=== PATIENT | female | born 1960 | race Two or more races ===

== ENCOUNTER 2017-12-25 20:43 | Emergency (ER) | payer MEDICAID ==
[~2017-12-25] VITALS: Ht 162.6 cm; Wt 109.3 kg
[~2017-12-25 20:43] MED LIST: ALPR0.5T8 PO; ATOR10TA PO; CLOP75TA15 PO; FURO-150 PO; GABA-532 PO; HYDR-569 PO; INSU100V37 SQ; LOSA50TA37 PO; METF850T2 PO; METO25TA6 PO; OXYB5TAB29 PO; PANT-47 PO; POTA8TAB57 PO; PRAM1TAB4 PO; THYR60TA2 PO
[2017-12-25] MEDS ORDERED: normal saline 1000ML IV soln IVB ONE (21:05)
[2017-12-25 21:51] LABS: ALANINE AMINOTRANSFERASE 52 U/L (12-78); ALBUMIN 3.6 G/DL (3.4-5.0); ALKALINE PHOSPHATASE 148 IU/L (46-116); ANION GAP 12 (8-16); ASPARTATE AMINO TRANSFERASE 24 U/L (10-37); BILIRUBIN,TOTAL 0.3 MG/DL (0.1-1.0); BLOOD UREA NITROGEN 20 MG/DL (7-18); BUN/CREATININE RATIO 23.3 (6.6-38.0); CHLORIDE 106 MMOL/L (99-107); CREATININE 0.86 MG/DL (0.40-0.90); GLUCOSE 219 MG/DL (70-104); MAGNESIUM 2.1 MG/DL (1.5-2.4); POTASSIUM 3.6 MMOL/L (3.5-5.1); SODIUM 140 MMOL/L (135-145); TOTAL PROTEIN 7.2 G/DL (6.4-8.2); eGFR 68 ML/MIN
[2017-12-25 22:09] LABS: BASOPHILS % (AUTO) 0.3 % (0-1); EOSINOPHILS # (AUTO) 0.1 X10'3 (0-0.9); EOSINOPHILS % (AUTO) 1.1 % (0-6); HEMOGLOBIN 13.6 g/dl (12.0-16.0); LYMPHOCYTES # (AUTO) 3.1 X10'3 (1.1-4.8); LYMPHOCYTES % (AUTO) 31.2 % (21-51); MEAN CORPUSCULAR HEMOGLOBIN 30.2 PG (27.0-31.0); MEAN CORPUSCULAR VOLUME 88.9 FL (78-98); MONOCYTES # (AUTO) 0.6 X10'3 (0-0.9); MONOCYTES % (AUTO) 6.3 % (2-12); NEUTROPHILS % (AUTO) 61.1 % (42-75); PLATELET COUNT 268 X10'3 (140-440); RED CELL DISTRIBUTION WIDTH 13.5 % (11.5-14.5); WHITE BLOOD COUNT 9.9 X10'3 (4.5-11.0)
[2017-12-25 22:13] LABS: CLARITY,URINE SLIGHTLY CLOUDY (Clear); COLOR,URINE YELLOW (Yellow); GLUCOSE, URINE >=1000 mg/dl (Neg); KETONES,URINE NEGATIVE (Neg); LEUKOCYTE ESTERASE ,URINE TRACE (Neg); NITRITES, URINE NEGATIVE (Neg); OCCULT BLOOD,URINE NEGATIVE (Neg); PH,URINE 5.5 (4.8-8.0); PROTEIN,URINE NEGATIVE (Neg); UROBILINOGEN,URINE 0.2 E.U/dL (0.2-1.0)
[2017-12-25 22:14] LABS: UA COLLECTION TYPE CLN CATCH MIDSTREAM
[2017-12-25 22:20] LABS: BACTERIA,URINE 1+ /HPF (Neg); MUCUS STRANDS FEW /LPF (Neg); RBC,URINE 0-2 /HPF (0-2); SQUAMOUS EPITHELIAL CELL,UR MODERATE /LPF (FEW); WBC CLUMPS,URINE MODERATE /HPF (NEGATIVE); WBC,URINE 20-30 /HPF (0-4)
[2017-12-25] MEDS ORDERED: nitrofuran/nitrofuran macrocrysal 100 MG capsule PO ONE (22:30)
[2017-12-25] MEDS ORDERED: HYDROcodone/acetaminophen 10/325mg tab PO ONE (22:30)
[2017-12-25] MEDS ORDERED: NITR100C6 PO (22:40)
[2017-12-25 22:50] VITALS: BP 111/64
== END 2017-12-25 22:58 | disposition home or self-care (01) ==
LOC: ER 20:43
DX: S13.4XXA Sprain of ligaments of cervical spine, initial encounter (principal); S09.90XA Unspecified injury of head, initial encounter; N39.0 Urinary tract infection, site not specified; I25.10 Atherosclerotic heart disease of native coronary artery without angina pectoris; I10 Essential (primary) hypertension; E03.9 Hypothyroidism, unspecified; E11.9 Type 2 diabetes mellitus without complications; Z90.710 Acquired absence of both cervix and uterus; Z86.73 Personal history of transient ischemic attack (TIA), and cerebral infarction without residual deficits; Z88.5 Allergy status to narcotic agent; Z88.0 Allergy status to penicillin; Z79.4 Long term (current) use of insulin; Z79.84 Long term (current) use of oral hypoglycemic drugs; Z79.899 Other long term (current) drug therapy; W18.39XA Other fall on same level, initial encounter; Y93.89 Activity, other specified; Y92.89 Other specified places as the place of occurrence of the external cause; Y99.8 Other external cause status
CPT/HCPCS: 36415; 70450; 71045; 72125; 73110; 80053; 81001; 82948; 83735; 84484; 85025; 87088; 93005; 96360; 99285; J7030; 74176

== ENCOUNTER 2018-10-22 14:15 | Emergency (ER) | payer MEDICAID ==
[~2018-10-22] VITALS: Ht 162.6 cm; Wt 106.8 kg
[~2018-10-22 14:15] MED LIST changes: +HYDR-4383 PO; -HYDR-569 PO; -LOSA50TA37 PO; +LOSA50TA64 PO; +METF-437 PO; -METF850T2 PO; +NITR100C6 PO
[2018-10-22] MEDS ORDERED: albuterol 2.5 mg/0.5ml nebule NEB ONE (15:45)
[2018-10-22] MEDS ORDERED: methylPREDNISolone sod succ 125mg/2ml vial IV ONE (15:45)
[2018-10-22] MEDS ORDERED: albuterol 2.5 MG/3 ML nebule NEB ONE (15:50)
[2018-10-22 16:21] LABS: BASOPHILS % (AUTO) 0.5 % (0-1); EOSINOPHILS % (AUTO) 0.3 % (0-6); HEMATOCRIT 45.8 % (35.0-45.0); HEMOGLOBIN 15.2 g/dl (12.0-16.0); LYMPHOCYTES # (AUTO) 2.8 X10'3 (1.1-4.8); LYMPHOCYTES % (AUTO) 32.5 % (21-51); MEAN CORPUSCULAR HEMOGLOBIN 29.7 PG (27.0-31.0); MEAN CORPUSCULAR HGB CONC 33.3 g/dL (33.0-36.5); MEAN CORPUSCULAR VOLUME 89.3 FL (78-98); MEAN PLATELET VOLUME 8.6 FL (7.4-10.4); MONOCYTES # (AUTO) 0.4 X10'3 (0-0.9); MONOCYTES % (AUTO) 5.2 % (2-12); NEUTROPHILS # (AUTO) 5.4 X10'3 (1.8-7.7); NEUTROPHILS % (AUTO) 61.5 % (42-75); PLATELET COUNT 290 X10'3 (140-440); RED BLOOD COUNT 5.12 X10'6 (4.20-5.60); RED CELL DISTRIBUTION WIDTH 14.1 % (11.5-14.5); WHITE BLOOD COUNT 8.6 X10'3 (4.5-11.0)
[2018-10-22] MEDS ORDERED: PRED20TA PO (16:35)
[2018-10-22] MEDS ORDERED: ALBU6.7H INH (16:35)
[2018-10-22] MEDS ORDERED: ipratropium/albuterol 3ml nebule NEB ONE (16:35)
[2018-10-22] MEDS ORDERED: GUAI473S11 PO (16:35)
[2018-10-22] MEDS ORDERED: LEVO500T2 PO (16:35)
[2018-10-22 17:39] VITALS: BP 140/63
[2018-10-22 17:40] LABS: ALANINE AMINOTRANSFERASE 70 U/L (12-78); ALBUMIN 3.5 G/DL (3.4-5.0); ALKALINE PHOSPHATASE 115 IU/L (46-116); ANION GAP 14 (8-16); ASPARTATE AMINO TRANSFERASE 32 U/L (10-37); BILIRUBIN,TOTAL 0.4 MG/DL (0.1-1.0); BLOOD UREA NITROGEN 12 MG/DL (7-18); BUN/CREATININE RATIO 13.3 (6.6-38.0); CHLORIDE 106 MMOL/L (99-107); GLUCOSE 98 MG/DL (70-104); POTASSIUM 3.4 MMOL/L (3.5-5.1); SODIUM 142 MMOL/L (135-145); TOTAL CARBON DIOXIDE 22.3 MMOL/L (24-32); TOTAL PROTEIN 7.1 G/DL (6.4-8.2); eGFR 64 ML/MIN
== END 2018-10-22 17:45 | disposition home or self-care (01) ==
LOC: ER 14:16
DX: J20.9 Acute bronchitis, unspecified (principal); E86.0 Dehydration; I10 Essential (primary) hypertension; I25.10 Atherosclerotic heart disease of native coronary artery without angina pectoris; E11.9 Type 2 diabetes mellitus without complications; E03.9 Hypothyroidism, unspecified; Z86.73 Personal history of transient ischemic attack (TIA), and cerebral infarction without residual deficits; Z90.710 Acquired absence of both cervix and uterus; Z88.6 Allergy status to analgesic agent; Z88.0 Allergy status to penicillin; Z79.4 Long term (current) use of insulin
CPT/HCPCS: 36415; 71046; 80053; 83605; 85025; 87040; 93005; 94640; 94760; 96374; 99284; J2930; J7611

== ENCOUNTER 2019-02-07 08:28 | Emergency (ER) | payer MEDICAID ==
[~2019-02-07] VITALS: Ht 162.6 cm; Wt 118.0 kg
[~2019-02-07 08:28] MED LIST changes: +ALBU6.7H INH
--- NOTE | 2019-02-07 08:51 | NUR ---
SPOKE TO POISON CONTROL. POSION CONTROLLED RECOMMENDED THAT IF PT. IS SYMPTOMATIC TO HAVE PHYSICIAN EVALUATE HER.
[2019-02-07 08:56] LABS: BASOPHILS # (AUTO) 0.1 X10'3 (0-0.2); BASOPHILS % (AUTO) 0.7 % (0-1); EOSINOPHILS # (AUTO) 0.1 X10'3 (0-0.9); EOSINOPHILS % (AUTO) 1.8 % (0-6); HEMATOCRIT 38.5 % (35.0-45.0); LYMPHOCYTES # (AUTO) 2.7 X10'3 (1.1-4.8); LYMPHOCYTES % (AUTO) 34.4 % (21-51); MEAN CORPUSCULAR HEMOGLOBIN 28.8 PG (27.0-31.0); MEAN CORPUSCULAR HGB CONC 33.7 g/dL (33.0-36.5); MEAN CORPUSCULAR VOLUME 85.4 FL (78-98); MEAN PLATELET VOLUME 8.6 FL (7.4-10.4); MONOCYTES # (AUTO) 0.4 X10'3 (0-0.9); MONOCYTES % (AUTO) 5.5 % (2-12); NEUTROPHILS # (AUTO) 4.5 X10'3 (1.8-7.7); NEUTROPHILS % (AUTO) 57.6 % (42-75); PLATELET COUNT 328 X10'3 (140-440); RED BLOOD COUNT 4.51 X10'6 (4.20-5.60); RED CELL DISTRIBUTION WIDTH 12.9 % (11.5-14.5); WHITE BLOOD COUNT 7.8 X10'3 (4.5-11.0)
[2019-02-07 09:17] LABS: ALANINE AMINOTRANSFERASE 49 U/L (12-78); ALBUMIN 3.4 G/DL (3.4-5.0); ALBUMIN/GLOBULIN RATIO 0.9 (1.1-1.5); ALKALINE PHOSPHATASE 152 IU/L (46-116); ANION GAP 9 (8-16); BILIRUBIN,TOTAL 0.4 MG/DL (0.1-1.0); BLOOD UREA NITROGEN 10 MG/DL (7-18); BUN/CREATININE RATIO 11.5 (6.6-38.0); CHLORIDE 105 MMOL/L (99-107); CREATININE 0.87 MG/DL (0.40-0.90); GLUCOSE 178 MG/DL (70-104); POTASSIUM 3.6 MMOL/L (3.5-5.1); SODIUM 138 MMOL/L (135-145); TOTAL CARBON DIOXIDE 24.3 MMOL/L (24-32); TOTAL PROTEIN 7.1 G/DL (6.4-8.2); eGFR 67 ML/MIN
[2019-02-07 09:19] LABS: ASPARTATE AMINO TRANSFERASE 28 U/L (10-37)
[2019-02-07 09:48] VITALS: BP 125/70
== END 2019-02-07 09:51 | disposition home or self-care (01) ==
LOC: ER 08:30
DX: T60.4X1A Toxic effect of rodenticides, accidental (unintentional), initial encounter (principal); R11.0 Nausea; I25.10 Atherosclerotic heart disease of native coronary artery without angina pectoris; I10 Essential (primary) hypertension; E11.9 Type 2 diabetes mellitus without complications; E03.9 Hypothyroidism, unspecified; Z86.73 Personal history of transient ischemic attack (TIA), and cerebral infarction without residual deficits; Z90.710 Acquired absence of both cervix and uterus; Z98.890 Other specified postprocedural states; Z88.5 Allergy status to narcotic agent; Z88.0 Allergy status to penicillin; Z79.4 Long term (current) use of insulin; Z79.899 Other long term (current) drug therapy; Y92.89 Other specified places as the place of occurrence of the external cause
CPT/HCPCS: 36415; 80053; 85025; 85610; 99283

== ENCOUNTER 2020-03-11 08:56 | Day surgery (SDC) | payer MEDICAID ==
[2020-03-09 09:15] LABS: BASOPHILS % (AUTO) 0.6 % (0-1); EOSINOPHILS # (AUTO) 0.1 X10'3 (0-0.9); EOSINOPHILS % (AUTO) 1.9 % (0-6); HEMATOCRIT 38.6 % (35.0-45.0); HEMOGLOBIN 12.7 g/dl (12.0-16.0); LYMPHOCYTES # (AUTO) 2.9 X10'3 (1.1-4.8); LYMPHOCYTES % (AUTO) 40.1 % (21-51); MEAN CORPUSCULAR HEMOGLOBIN 28.9 PG (27.0-31.0); MEAN CORPUSCULAR VOLUME 87.3 FL (78-98); MEAN PLATELET VOLUME 8.7 FL (7.4-10.4); MONOCYTES # (AUTO) 0.4 X10'3 (0-0.9); MONOCYTES % (AUTO) 5.7 % (2-12); NEUTROPHILS # (AUTO) 3.7 X10'3 (1.8-7.7); NEUTROPHILS % (AUTO) 51.7 % (42-75); PLATELET COUNT 264 X10'3 (140-440); RED BLOOD COUNT 4.42 X10'6 (4.20-5.60); RED CELL DISTRIBUTION WIDTH 13.8 % (11.5-14.5); WHITE BLOOD COUNT 7.1 X10'3 (4.5-11.0)
[2020-03-09 09:26] LABS: PARTIAL THROMBOPLASTIN TIME 27 SECONDS (22-32)
[2020-03-09 09:52] LABS: ALANINE AMINOTRANSFERASE 31 U/L (12-78); ALBUMIN 3.5 G/DL (3.4-5.0); ALBUMIN/GLOBULIN RATIO 0.9 (1.1-1.5); ALKALINE PHOSPHATASE 123 IU/L (46-116); ANION GAP 11 (8-16); ASPARTATE AMINO TRANSFERASE 19 U/L (10-37); BILIRUBIN,TOTAL 0.4 MG/DL (0.1-1.0); BLOOD UREA NITROGEN 10 MG/DL (7-18); BUN/CREATININE RATIO 11.4 (6.6-38.0); CALCIUM 8.5 MG/DL (8.5-10.1); CHLORIDE 110 MMOL/L (99-107); CREATININE 0.88 MG/DL (0.40-0.90); GLUCOSE 96 MG/DL (70-104); POTASSIUM 3.7 MMOL/L (3.5-5.1); SODIUM 143 MMOL/L (135-145); TOTAL CARBON DIOXIDE 22.5 MMOL/L (24-32); TOTAL PROTEIN 7.3 G/DL (6.4-8.2); eGFR 66 ML/MIN
[2020-03-11] VITALS (18 sets, daily range): BP systolic 130–160; BP diastolic 74–89
[~2020-03-11] VITALS: Ht 157.5 cm; Wt 107.9 kg
[~2020-03-11 08:56] MED LIST changes: -ALBU6.7H INH; +ALBU6.7H9 INH
[2020-03-11] MEDS ORDERED: normal saline 1,000 ML IV SCH (09:15)
[2020-03-11] MEDS ORDERED: diphenhydrAMINE 25mg capsule PO PRN (09:15)
[2020-03-11] MEDS ORDERED: insulin Lispro (HumaLOG) vial - multi-dose SQ SCH (09:15)
[2020-03-11] MEDS ORDERED: LORazepam 0.5 MG tablet PO PRN (09:15)
[2020-03-11] MEDS ORDERED: dextrose 50%-water 50ml dispensing syringe IV PRN ×2 (09:15)
[2020-03-11] MEDS ORDERED: glucagon, human recombinant 1mg kit SUBCUT PRN (09:15)
[2020-03-11] MEDS ORDERED: nitroGLYCERIN 0.4mg SUBLingual tab SL PRN ×3 (09:15→13:55)
[2020-03-11] MEDS ORDERED: dextrose ORAL solution 15 GM/59 ML bottle PO PRN ×2 (09:15)
--- NOTE | 2020-03-11 09:30 | NUR ---
Pt arrives to Short Stay with bhavna Wellerator.
[2020-03-11] MEDS ORDERED: ATOR10TA87 PO (09:33)
[2020-03-11] MEDS ORDERED: NITR0.4T48 SL (09:33)
[2020-03-11] MEDS ORDERED: MONT10TA26 PO (09:33)
[2020-03-11] MEDS ORDERED: LIRA0.6P SQ (09:33)
[2020-03-11] MEDS ORDERED: heparin 1,000 UNITS/NS 500ml 500 ML ONE (10:29)
[2020-03-11] MEDS ORDERED: midazolam 2 mg/2 ml injection ONE (10:29)
[2020-03-11] MEDS ORDERED: LIDOcaine 1% (10mg/ml)w/preservative injection 20ml MDV ONE (10:29)
[2020-03-11] MEDS ORDERED: iohexol 350 MG/ML 50ML vial IV ONE (10:29)
[2020-03-11] MEDS ORDERED: iohexol 350MG/ML 100ml bottle IV ONE (10:29)
[2020-03-11] MEDS ORDERED: fentaNYL/PF 50MCG/1 ML 2ML syringe ONE (10:29)
[2020-03-11] MEDS ORDERED: normal saline 1000ml 1,000 ML IV SCH (12:05)
[2020-03-11] MEDS ORDERED: HYDROcodone/acetaminophen 5mg/325mg tablet PO PRN (12:05)
[2020-03-11] MEDS ORDERED: HYDROcodone/acetaminophen 10/325mg tab PO PRN (12:05)
[2020-03-11] MEDS ORDERED: OXAZEpam 15mg capsule PO PRN (12:05)
[2020-03-11] MEDS ORDERED: proCHLORperazine 10 MG/2 ml inj IV PRN (12:05)
[2020-03-11] MEDS ORDERED: ondansetron/PF 4mg/2ml inj IV PRN (12:05)
[2020-03-11] MEDS ORDERED: losartan 50mg tablet PO SCH (13:58)
[2020-03-11] MEDS ORDERED: LIRAGLUTIDE 0.6 MG/0.1 ML PEN.INJCTR SQ SCH (14:05)
[2020-03-11] MEDS ORDERED: MESSAGE TO NURSING PO NR (14:17)
[2020-03-11] MEDS ORDERED: insulin glargine (Lantus) pen - multi-dose SQ SCH (21:00)
[2020-03-12] MEDS ORDERED: montelukast 10mg tablet PO SCH (08:00)
[2020-03-12] MEDS ORDERED: clopidogrel 75mg tablet PO SCH (08:00)
[2020-03-12] MEDS ORDERED: atorvastatin 10mg tablet PO SCH (08:00)
[2020-03-13] MEDS ORDERED: metFORMIN 850mg tablet PO SCH (13:00)
== END 2020-03-11 19:00 | disposition home or self-care (01) ==
LOC: SSTAY O 08:56
PROVIDERS: ATTEND Internal Medicine Cardiovascular Disease
DX: R06.09 Other forms of dyspnea (principal); R07.89 Other chest pain; I25.10 Atherosclerotic heart disease of native coronary artery without angina pectoris; I10 Essential (primary) hypertension; E78.5 Hyperlipidemia, unspecified; E11.9 Type 2 diabetes mellitus without complications; G47.33 Obstructive sleep apnea (adult) (pediatric); Z86.73 Personal history of transient ischemic attack (TIA), and cerebral infarction without residual deficits; Z90.710 Acquired absence of both cervix and uterus; Z88.0 Allergy status to penicillin; Z88.5 Allergy status to narcotic agent; Z87.891 Personal history of nicotine dependence; Z79.899 Other long term (current) drug therapy
CPT/HCPCS: 36415; 71046; 80053; 82948; 83880; 85025; 85610; 85730; 93005; 93458; 99152; 99153; C1760; C1769; J1644; J2001; J2250; J3010; J7030; Q0163; Q9967; A6258; J1815

== ENCOUNTER 2020-03-31 06:47 | Day surgery (SDC) | payer MEDICAID ==
[2020-03-23 10:19] LABS: BASOPHILS % (AUTO) 0.4 % (0-1); EOSINOPHILS # (AUTO) 0.2 X10'3 (0-0.9); EOSINOPHILS % (AUTO) 1.7 % (0-6); LYMPHOCYTES # (AUTO) 2.7 X10'3 (1.1-4.8); LYMPHOCYTES % (AUTO) 28.8 % (21-51); MEAN CORPUSCULAR HGB CONC 33.7 g/dL (33.0-36.5); MEAN CORPUSCULAR VOLUME 86.2 FL (78-98); MEAN PLATELET VOLUME 8.6 FL (7.4-10.4); MONOCYTES # (AUTO) 0.5 X10'3 (0-0.9); NEUTROPHILS % (AUTO) 64.1 % (42-75); PRE OP HEMATOCRIT 38.7 % (35.0-45.0); PRE OP PLATELET COUNT 312 X10'3 (140-440); RED BLOOD COUNT 4.49 X10'6 (4.20-5.60); RED CELL DISTRIBUTION WIDTH 13.8 % (11.5-14.5)
[2020-03-23 10:32] LABS: ALBUMIN 3.6 G/DL (3.4-5.0); ALBUMIN/GLOBULIN RATIO 0.9 (1.1-1.5); ALKALINE PHOSPHATASE 120 IU/L (46-116); BLOOD UREA NITROGEN 11 MG/DL (7-18); BUN/CREATININE RATIO 10.4 (6.6-38.0); CALCIUM 8.9 MG/DL (8.5-10.1); CHLORIDE 106 MMOL/L (99-107); CREATININE 1.06 MG/DL (0.40-0.90); PRE OP ALT 29 U/L (30-65); PRE OP ANION GAP 10 (8-16); PRE OP AST 23 U/L (10-37); PRE OP BILIRUB, TOTAL 0.5 MG/DL (0.0-1.0); PRE OP GLUCOSE 115 MG/DL (70-104); PRE OP SODIUM 139 MMOL/L (135-145); TOTAL CARBON DIOXIDE 23.3 MMOL/L (24-32); TOTAL PROTEIN 7.5 G/DL (6.4-8.2); eGFR 53 ML/MIN
[2020-03-23 10:38] LABS: PRE OP POTASSIUM 3.3 MMOL/L (3.4-5.1)
[~2020-03-31] VITALS: Ht 162.6 cm; Wt 106.8 kg
[2020-03-31] VITALS (17 sets, daily range): BP systolic 117–144; BP diastolic 54–79
[~2020-03-31 06:47] MED LIST changes: -ALBU6.7H9 INH; -ALPR0.5T8 PO; -ATOR10TA PO; +ATOR10TA87 PO; -GABA-532 PO; -HYDR-4383 PO; +LIRA0.6P SQ; +LORA-269 PO; -METO25TA6 PO; +MONT10TA26 PO; +NITR0.4T48 SL; -NITR100C6 PO; -OXYB5TAB29 PO; -PANT-47 PO; -POTA8TAB57 PO; -PRAM1TAB4 PO; +clindamycin-Cleocin 900mg/D5W 50 ML IV ONE; +famotidine 20mg tablet PO ONE; +ringers solution, lacted 1,000 ML IV SCH
[2020-03-31] MEDS ORDERED: ringers solution, lacted 1,000 ML IV SCH (08:22)
[2020-03-31] MEDS ORDERED: proCHLORperazine 10 MG/2 ml inj IV PRN (08:25)
[2020-03-31] MEDS ORDERED: morphine 2 MG/ML inj. syringe IV PRN (08:25)
[2020-03-31] MEDS ORDERED: meperidine/PF 25mg/ml syringe IV PRN ×3 (08:25)
[2020-03-31] MEDS ORDERED: ondansetron/PF 4mg/2ml inj IV PRN (08:25)
[2020-03-31] MEDS ORDERED: morphine 4 MG/ML inj SYRINge IV PRN (08:25)
[2020-03-31] MEDS ORDERED: BUPIVACAINE liposomal/PF 13.3 MG/ML vial IM ONE (09:40)
[2020-03-31] MEDS ORDERED: BUPIVAcaine/PF 2.5 mg/ml (0.25%) 30ml vial ONE (09:40)
[2020-03-31] MEDS ORDERED: BUPIVAcaine/PF 2.5mg/ml (0.25%) 10ml vial ONE (09:40)
[2020-03-31] MEDS ORDERED: LIDOcaine 1% 30ml preserv. free vial ONE (09:40)
[2020-03-31] MEDS ORDERED: glycopyrrolate 0.2mg/ml inj ONE (10:14)
[2020-03-31] MEDS ORDERED: desflurane 240ml liquid inh. IH ONE (10:14)
[2020-03-31] MEDS ORDERED: dexamethasone sod phosphate 10mg/ml inj ONE (10:14)
[2020-03-31] MEDS ORDERED: neostigmine methylsulfate 1 MG/ML 10ml vial ONE (10:14)
[2020-03-31] MEDS ORDERED: midazolam 2 mg/2 ml injection ONE (10:22)
[2020-03-31] MEDS ORDERED: fentaNYL /PF 50mcg/ml 5ml ampule ONE (10:23)
[2020-03-31] MEDS ORDERED: propofol inj 20 ML IV ONE (10:25)
[2020-03-31] MEDS ORDERED: LIDOcaine 2% (20mg/ml) 5ml vial ONE (10:25)
[2020-03-31] MEDS ORDERED: rocuronium 10mg/ml inj IV ONE (10:26)
[2020-03-31] MEDS ORDERED: ondansetron/PF 4mg/2ml inj ONE (11:18)
[2020-03-31] MEDS ORDERED: acetaminophen 1,000mg/100ml IV 100 ML IV ONE (12:11)
--- NOTE | 2020-03-31 12:21 | NUR ---
Received from OR via [facility], accompanied by Anesthesiologist DR KUHN and report given by Anesthesiologist. VSS. AWAKENS TO COMMANDS. NO C/O PAIN/ ABD SOFT/NONTENDER. IV PATENT #20 LEFT HAND. SCD'S BILAT. Addendum: 03/31/20 at 1239 by Danika Bailey RN Amended: Links added.
[2020-03-31] MEDS ORDERED: HYDROcodone/acetaminophen 10/325mg tab PO PRN (13:05)
--- NOTE | 2020-03-31 15:11 | NUR ---
VSS. UP TO BR-VOID 200MLS-STATES FEELS EMPTIED BLADDER WHEN ASKED. ABD BANDAIDS CDI. ABD SOFT/NONDISTENDED. TOLERATING PO FLUIDS AND SNACK WELL. STATES ADEQUATE PAIN RELIEF AND READINESS TO DC HOME WHEN ASKED. IV DC'D WITH CANNULA INTACT AND DSG APPLIED. DC INSTRUCTIONS REVIEWED WITH PT AND DTR WHO VEBALIZED UNDERSTANDING. DC VIA W/C TO PVT AUTO WITH ALL BELONGINGS AND DTR PRESENT. Addendum: 03/31/20 at 1533 by Danika Bailey RN Amended: Links added.
== END 2020-03-31 15:11 | disposition home or self-care (01) ==
LOC: PAS 06:47
PROVIDERS: ATTEND Surgery
DX: K43.0 Incisional hernia with obstruction, without gangrene (principal); K42.9 Umbilical hernia without obstruction or gangrene; E11.9 Type 2 diabetes mellitus without complications; E78.5 Hyperlipidemia, unspecified; F41.9 Anxiety disorder, unspecified; E03.9 Hypothyroidism, unspecified; I10 Essential (primary) hypertension; E66.01 Morbid (severe) obesity due to excess calories; Z68.41 Body mass index [BMI] 40.0-44.9, adult; Z90.49 Acquired absence of other specified parts of digestive tract; Z88.5 Allergy status to narcotic agent; Z88.0 Allergy status to penicillin; Z79.01 Long term (current) use of anticoagulants; Z79.4 Long term (current) use of insulin; Z11.59 Encounter for screening for other viral diseases; Z98.890 Other specified postprocedural states; Z86.73 Personal history of transient ischemic attack (TIA), and cerebral infarction without residual deficits
CPT/HCPCS: 36415; 49652; 49655; 64488; 80053; 82948; 85025; 85610; 85730; A6258; C1781; C9290; J0131; J1100; J2001; J2250; J2405; J2704; J2710; J3010; J3490; J7120; S2900; U0003; A4215; A4618

== ENCOUNTER 2020-05-27 16:47 | Emergency (ER) | payer MEDICAID ==
[~2020-05-27] VITALS: Ht 162.6 cm; Wt 102.2 kg
[~2020-05-27 16:47] MED LIST changes: -clindamycin-Cleocin 900mg/D5W 50 ML IV ONE; -famotidine 20mg tablet PO ONE; -ringers solution, lacted 1,000 ML IV SCH
[2020-05-27] MEDS ORDERED: vancomycin/NS 1 GM ADD-VANTAGE 250 ML IV ONE (16:55)
[2020-05-27] MEDS ORDERED: levoFLOXACIN-Levaquin 750MG/D5 150 ML IV ONE (16:55)
[2020-05-27] MEDS ORDERED: iohexol 300mg/ml 100ml inj. ONE (17:20)
[2020-05-27 18:17] LABS: BASOPHILS % (AUTO) 0.3 % (0-1); EOSINOPHILS # (AUTO) 0.1 X10'3 (0-0.9); EOSINOPHILS % (AUTO) 1.4 % (0-6); HEMATOCRIT 37.2 % (35.0-45.0); HEMOGLOBIN 12.6 g/dl (12.0-16.0); LYMPHOCYTES # (AUTO) 2.6 X10'3 (1.1-4.8); LYMPHOCYTES % (AUTO) 27.4 % (21-51); MEAN CORPUSCULAR HEMOGLOBIN 29.9 PG (27.0-31.0); MEAN CORPUSCULAR HGB CONC 33.8 g/dL (33.0-36.5); MEAN CORPUSCULAR VOLUME 88.5 FL (78-98); MONOCYTES # (AUTO) 0.4 X10'3 (0-0.9); MONOCYTES % (AUTO) 4.7 % (2-12); NEUTROPHILS # (AUTO) 6.2 X10'3 (1.8-7.7); NEUTROPHILS % (AUTO) 66.2 % (42-75); PLATELET COUNT 301 X10'3 (140-440); RED BLOOD COUNT 4.21 X10'6 (4.20-5.60); RED CELL DISTRIBUTION WIDTH 15.6 % (11.5-14.5); WHITE BLOOD COUNT 9.4 X10'3 (4.5-11.0)
[2020-05-27 18:37] LABS: ALANINE AMINOTRANSFERASE 31 U/L (12-78); ALBUMIN 3.4 G/DL (3.4-5.0); ALBUMIN/GLOBULIN RATIO 0.9 (1.1-1.5); ALKALINE PHOSPHATASE 108 IU/L (46-116); ANION GAP 10 (8-16); ASPARTATE AMINO TRANSFERASE 18 U/L (10-37); BILIRUBIN,TOTAL 0.3 MG/DL (0.1-1.0); BLOOD UREA NITROGEN 7 MG/DL (7-18); BUN/CREATININE RATIO 8.8 (6.6-38.0); CALCIUM 8.8 MG/DL (8.5-10.1); CHLORIDE 106 MMOL/L (99-107); GLUCOSE 108 MG/DL (70-104); MAGNESIUM 1.8 MG/DL (1.5-2.4); POTASSIUM 3.3 MMOL/L (3.5-5.1); SODIUM 139 MMOL/L (135-145); TOTAL CARBON DIOXIDE 22.8 MMOL/L (24-32); eGFR 73 ML/MIN
[2020-05-27] MEDS ORDERED: SULF1TAB49 PO ×2 (18:42→18:49)
[2020-05-27 21:11] VITALS: BP 128/82
== END 2020-05-27 21:00 | disposition home or self-care (01) ==
LOC: ER 16:48
DX: L03.311 Cellulitis of abdominal wall (principal); R10.84 Generalized abdominal pain; I25.10 Atherosclerotic heart disease of native coronary artery without angina pectoris; I10 Essential (primary) hypertension; E11.9 Type 2 diabetes mellitus without complications; E03.9 Hypothyroidism, unspecified; Z86.73 Personal history of transient ischemic attack (TIA), and cerebral infarction without residual deficits; Z90.710 Acquired absence of both cervix and uterus; Z88.0 Allergy status to penicillin; Z79.4 Long term (current) use of insulin; Z79.2 Long term (current) use of antibiotics; Z79.899 Other long term (current) drug therapy
CPT/HCPCS: 36415; 74177; 80053; 83605; 83735; 84145; 85025; 87040; 93005; 96365; 96367; 99285; J1956; J3370; Q9967

== ENCOUNTER 2021-03-05 18:09 | Emergency (ER) | payer MEDICAID ==
[~2021-03-05] VITALS: Ht 162.6 cm; Wt 98.6 kg
[~2021-03-05 18:09] MED LIST changes: -MONT10TA26 PO; +MONT10TA32 PO; +SULF1TAB49 PO
[2021-03-05 18:51] LABS: BASOPHILS % (AUTO) 0.4 % (0-1); EOSINOPHILS # (AUTO) 0.1 X10'3 (0-0.9); EOSINOPHILS % (AUTO) 1.3 % (0-6); HEMATOCRIT 37.6 % (35.0-45.0); HEMOGLOBIN 12.5 g/dl (12.0-16.0); LYMPHOCYTES # (AUTO) 2.6 X10'3 (1.1-4.8); LYMPHOCYTES % (AUTO) 37.9 % (21-51); MEAN CORPUSCULAR HEMOGLOBIN 29.2 PG (27.0-31.0); MEAN CORPUSCULAR HGB CONC 33.3 g/dL (33.0-36.5); MEAN CORPUSCULAR VOLUME 87.7 FL (78-98); MEAN PLATELET VOLUME 8.3 FL (7.4-10.4); MONOCYTES # (AUTO) 0.4 X10'3 (0-0.9); MONOCYTES % (AUTO) 6.3 % (2-12); NEUTROPHILS # (AUTO) 3.7 X10'3 (1.8-7.7); NEUTROPHILS % (AUTO) 54.1 % (42-75); PLATELET COUNT 297 X10'3 (140-440); RED BLOOD COUNT 4.29 X10'6 (4.20-5.60); RED CELL DISTRIBUTION WIDTH 14.8 % (11.5-14.5); WHITE BLOOD COUNT 6.8 X10'3 (4.5-11.0)
[2021-03-05 19:04] LABS: ALANINE AMINOTRANSFERASE 42 U/L (12-78); ALBUMIN 3.3 G/DL (3.4-5.0); ALBUMIN/GLOBULIN RATIO 0.9 (1.1-1.5); ALKALINE PHOSPHATASE 120 IU/L (46-116); ANION GAP 13 (8-16); ASPARTATE AMINO TRANSFERASE 20 U/L (10-37); BILIRUBIN,TOTAL 0.3 MG/DL (0.1-1.0); BLOOD UREA NITROGEN 8 MG/DL (7-18); BUN/CREATININE RATIO 8.9 (6.6-38.0); CALCIUM 8.5 MG/DL (8.5-10.1); CHLORIDE 109 MMOL/L (99-107); GLUCOSE 143 MG/DL (70-104); POTASSIUM 3.4 MMOL/L (3.5-5.1); SODIUM 142 MMOL/L (135-145); TOTAL CARBON DIOXIDE 20.2 MMOL/L (24-32); TOTAL PROTEIN 6.9 G/DL (6.4-8.2); eGFR 64 ML/MIN
[2021-03-05] MEDS ORDERED: LIDOcaine Viscous 15ml cup MM ONE (21:20)
[2021-03-05] MEDS ORDERED: mag hydrox/Alum hydrox/simeth 30ml oral suspension PO ONE (21:20)
[2021-03-05] MEDS ORDERED: pantoprazole 40mg Tablet.DR PO ONE (21:20)
[2021-03-05] MEDS ORDERED: potassium Cl 20 mEq SR tablet PO ONE (23:30)
[2021-03-05] MEDS ORDERED: potassium Cl 10 mEq/100mL bag IV ONE (23:30)
[2021-03-05] MEDS ORDERED: magnesium oxide 400mg tablet PO ONE (23:30)
[2021-03-05] MEDS ORDERED: magnesium 2GM in 50ml NS 50 ML IV ONE (23:30)
[2021-03-05 23:38] LABS: MAGNESIUM 1.9 MG/DL (1.5-2.4)
[2021-03-06 02:43] VITALS: BP 128/72
== END 2021-03-06 02:44 | disposition home or self-care (01) ==
LOC: ER 18:09
DX: E87.6 Hypokalemia (principal); Z20.822 Contact with and (suspected) exposure to COVID-19; R07.89 Other chest pain; R42 Dizziness and giddiness; I25.10 Atherosclerotic heart disease of native coronary artery without angina pectoris; I10 Essential (primary) hypertension; E11.9 Type 2 diabetes mellitus without complications; E03.9 Hypothyroidism, unspecified; Z90.710 Acquired absence of both cervix and uterus; Z98.890 Other specified postprocedural states; Z86.73 Personal history of transient ischemic attack (TIA), and cerebral infarction without residual deficits; Z88.0 Allergy status to penicillin; Z88.8 Allergy status to other drugs, medicaments and biological substances; Z79.899 Other long term (current) drug therapy
CPT/HCPCS: 36415; 71045; 80053; 83735; 83880; 84145; 84484; 85025; 85379; 87635; 93005; 99285; C9803; U0003

== ENCOUNTER 2021-08-19 12:23 | Emergency (ER) | payer MEDICAID ==
[~2021-08-19] VITALS: Ht 162.6 cm; Wt 90.9 kg
[~2021-08-19 12:23] MED LIST changes: +MONT-40 PO; -MONT10TA32 PO
[2021-08-19 14:04] LABS: BASOPHILS % (AUTO) 0.4 % (0-1); EOSINOPHILS # (AUTO) 0.2 X10'3 (0-0.9); EOSINOPHILS % (AUTO) 1.9 % (0-6); HEMATOCRIT 38.7 % (35.0-45.0); HEMOGLOBIN 12.9 g/dl (12.0-16.0); LYMPHOCYTES # (AUTO) 2.7 X10'3 (1.1-4.8); LYMPHOCYTES % (AUTO) 30.9 % (21-51); MEAN CORPUSCULAR HEMOGLOBIN 28.8 PG (27.0-31.0); MEAN CORPUSCULAR HGB CONC 33.5 g/dL (33.0-36.5); MEAN CORPUSCULAR VOLUME 86.1 FL (78-98); MEAN PLATELET VOLUME 8.5 FL (7.4-10.4); MONOCYTES # (AUTO) 0.4 X10'3 (0-0.9); NEUTROPHILS # (AUTO) 5.5 X10'3 (1.8-7.7); NEUTROPHILS % (AUTO) 61.8 % (42-75); PLATELET COUNT 341 X10'3 (140-440); RED CELL DISTRIBUTION WIDTH 13.4 % (11.5-14.5); WHITE BLOOD COUNT 8.8 X10'3 (4.5-11.0)
[2021-08-19 14:17] LABS: PARTIAL THROMBOPLASTIN TIME 25 SECONDS (22-32)
[2021-08-19 14:19] LABS: ALANINE AMINOTRANSFERASE 25 U/L (12-78); ALBUMIN 3.7 G/DL (3.4-5.0); ALBUMIN/GLOBULIN RATIO 0.9 (1.1-1.5); ALKALINE PHOSPHATASE 140 IU/L (46-116); ANION GAP 8 (8-16); ASPARTATE AMINO TRANSFERASE 18 U/L (10-37); BILIRUBIN,TOTAL 0.3 MG/DL (0.1-1.0); BLOOD UREA NITROGEN 11 MG/DL (7-18); BUN/CREATININE RATIO 12.8 (6.6-38.0); CALCIUM 9.4 MG/DL (8.5-10.1); CHLORIDE 105 MMOL/L (99-107); CREATININE 0.86 MG/DL (0.40-0.90); GLUCOSE 103 MG/DL (70-104); POTASSIUM 3.8 MMOL/L (3.5-5.1); SODIUM 139 MMOL/L (135-145); TOTAL CARBON DIOXIDE 25.7 MMOL/L (24-32); TOTAL PROTEIN 7.6 G/DL (6.4-8.2); eGFR 67 ML/MIN
[2021-08-19 18:38] LABS: CLARITY,URINE CLEAR (Clear); COLOR,URINE YELLOW (Yellow); GLUCOSE, URINE NEGATIVE (Neg); KETONES,URINE NEGATIVE (Neg); LEUKOCYTE ESTERASE ,URINE NEGATIVE (Neg); NITRITES, URINE NEGATIVE (Neg); OCCULT BLOOD,URINE NEGATIVE (Neg); PH,URINE 6.5 (4.8-8.0); PROTEIN,URINE NEGATIVE (Neg); UROBILINOGEN,URINE 0.2 E.U/dL (0.2-1.0)
[2021-08-19 18:55] LABS: UA COLLECTION TYPE CLN CATCH MIDSTREAM
[2021-08-19] MEDS ORDERED: acetaminophen 325mg tablet PO ONE (19:10)
[2021-08-19] MEDS ORDERED: ketorolac trometh. 30mg/ml inj. IM ONE (19:10)
[2021-08-19] MEDS ORDERED: proCHLORperazine 10 MG/2 ml inj IM ONE ×2 (19:10→19:35)
[2021-08-19 20:06] VITALS: BP 152/83
== END 2021-08-19 20:10 | disposition home or self-care (01) ==
LOC: ER 12:24
DX: R51.9 Headache, unspecified (principal); R53.1 Weakness; R42 Dizziness and giddiness; I25.10 Atherosclerotic heart disease of native coronary artery without angina pectoris; I10 Essential (primary) hypertension; E11.9 Type 2 diabetes mellitus without complications; E03.9 Hypothyroidism, unspecified; Z86.73 Personal history of transient ischemic attack (TIA), and cerebral infarction without residual deficits; Z90.710 Acquired absence of both cervix and uterus; Z98.890 Other specified postprocedural states; Z88.0 Allergy status to penicillin; Z79.2 Long term (current) use of antibiotics; Z79.899 Other long term (current) drug therapy
CPT/HCPCS: 36415; 70450; 71045; 80053; 81003; 85025; 85610; 85730; 86885; 86900; 86901; 93005; 96372; 99285; J0780; J1885

== ENCOUNTER 2022-04-22 09:21 | Inpatient (IN) | payer MEDICAID ==
[~2022-04-22] VITALS: Ht 154.9 cm; Wt 93.2 kg
[2022-04-22] MEDS ORDERED: normal saline 1000ML IV soln IVB ONE ×2 (11:30→14:00)
[2022-04-22 12:19] LABS: BASOPHILS % (AUTO) 0.1 % (0-1); EOSINOPHILS % (AUTO) 0 % (0-6); HEMOGLOBIN 13.7 g/dl (12.0-16.0); LYMPHOCYTES # (AUTO) 0.9 X10'3 (1.1-4.8); LYMPHOCYTES % (AUTO) 8.7 % (21-51); MEAN CORPUSCULAR HEMOGLOBIN 27.1 PG (27.0-31.0); MEAN CORPUSCULAR HGB CONC 33.3 g/dL (33.0-36.5); MEAN CORPUSCULAR VOLUME 81.3 FL (78-98); MEAN PLATELET VOLUME 8.7 FL (7.4-10.4); MONOCYTES # (AUTO) 0.3 X10'3 (0-0.9); MONOCYTES % (AUTO) 3.5 % (2-12); NEUTROPHILS # (AUTO) 8.6 X10'3 (1.8-7.7); NEUTROPHILS % (AUTO) 87.7 % (42-75); PLATELET COUNT 328 X10'3 (140-440); RED BLOOD COUNT 5.05 X10'6 (4.20-5.60); WHITE BLOOD COUNT 9.8 X10'3 (4.5-11.0)
[2022-04-22 12:35] LABS: ALANINE AMINOTRANSFERASE 33 U/L (12-78); ALBUMIN 3.6 G/DL (3.4-5.0); ALBUMIN/GLOBULIN RATIO 0.8 (1.1-1.5); ALKALINE PHOSPHATASE 125 IU/L (46-116); ANION GAP 18 (8-16); ASPARTATE AMINO TRANSFERASE 15 U/L (10-37); BILIRUBIN,TOTAL 0.3 MG/DL (0.1-1.0); BLOOD UREA NITROGEN 36 MG/DL (7-18); BUN/CREATININE RATIO 20.8 (6.6-38.0); CALCIUM 9.1 MG/DL (8.5-10.1); CHLORIDE 100 MMOL/L (99-107); CREATININE 1.73 MG/DL (0.40-0.90); GLUCOSE 218 MG/DL (70-104); POTASSIUM 4.1 MMOL/L (3.5-5.1); SODIUM 132 MMOL/L (135-145); TOTAL PROTEIN 8.3 G/DL (6.4-8.2); eGFR 30 ML/MIN
[2022-04-22 12:39] LABS: TOTAL CARBON DIOXIDE 14.5 MMOL/L (24-32)
[2022-04-22 14:31] LABS: ABG BASE EXCESS -7.9 mmol/L (-2.0-2.0); ABG HCO3 14.6 mmol/L (22.0-26.0); ABG OXYGEN SATURATION 97.2 % (94-97); ABG PCO2 (T) 23.2 mmHg (32.0-45.0); ABG PO2 (T) 95.6 mmHg (75.0-100.0); ALLEN'S TEST POSITIVE; FCOHb 0.3 % (0.0-3.9); FMetHb 0.5 % (0.0-1.5); FO2Hb 96.4 % (94-97); TOTAL HEMOGLOBIN 13.4 G/dl (12.0-16.0)
[2022-04-22 15:14] LABS: ALANINE AMINOTRANSFERASE 26 U/L (12-78); ALBUMIN 3.3 G/DL (3.4-5.0); ALBUMIN/GLOBULIN RATIO 0.8 (1.1-1.5); ALKALINE PHOSPHATASE 116 IU/L (46-116); ANION GAP 16 (8-16); ASPARTATE AMINO TRANSFERASE 18 U/L (10-37); BILIRUBIN,TOTAL 0.2 MG/DL (0.1-1.0); BLOOD UREA NITROGEN 34 MG/DL (7-18); BUN/CREATININE RATIO 23.4 (6.6-38.0); CALCIUM 8.5 MG/DL (8.5-10.1); CHLORIDE 106 MMOL/L (99-107); CREATININE 1.45 MG/DL (0.40-0.90); GLUCOSE 159 MG/DL (70-104); SODIUM 137 MMOL/L (135-145); TOTAL PROTEIN 7.6 G/DL (6.4-8.2); eGFR 36 ML/MIN
[2022-04-22 15:20] LABS: TOTAL CARBON DIOXIDE 14.9 MMOL/L (24-32)
[2022-04-22 15:42] LABS: MAGNESIUM 2.2 MG/DL (1.5-2.4)
[2022-04-22] MEDS ORDERED: ATOR40TA72 PO (16:21)
[2022-04-22] MEDS ORDERED: glucagon, human recombinant 1mg kit SUBCUT PRN (16:30)
[2022-04-22] MEDS ORDERED: DEXTROSE 15 GM of carb/4 tabs (each vial/BOTTLE has 4 tablets) PO PRN ×2 (16:30)
[2022-04-22] MEDS ORDERED: HYDROcodone/acetaminophen 5mg/325mg tablet PO PRN (16:30)
[2022-04-22] MEDS ORDERED: potassium CL 10mEq/100ml bag 100 ML IV PRN (16:30)
[2022-04-22] MEDS ORDERED: magnesium Cl slow-release 64mg tablet PO PRN (16:30)
[2022-04-22] MEDS ORDERED: mag hydrox/Alum hydrox/simeth 30ml oral suspension PO PRN (16:30)
[2022-04-22] MEDS ORDERED: acetaminophen 325mg tablet PO PRN (16:30)
[2022-04-22] MEDS ORDERED: ondansetron 4mg rapidly disintigrating tab PO PRN (16:30)
[2022-04-22] MEDS ORDERED: POTASSIUM BICARB 20meq eff tab 20 MEQ TABLET.EFF PO PRN (16:30)
[2022-04-22] MEDS ORDERED: MESSAGE TO PHARMACY PO ONE (16:30)
[2022-04-22] MEDS ORDERED: magnesium hydroxide 30ml (MOM) UD suspension PO PRN (16:30)
[2022-04-22] MEDS ORDERED: magnesium 2GM in 50ml NS 50 ML IV PRN (16:30)
[2022-04-22] MEDS ORDERED: metoclopramide 5 mg/ml inj IV PRN (16:30)
[2022-04-22] MEDS ORDERED: magnesium 4gm in 100ml NS 100 ML IV PRN (16:30)
[2022-04-22] MEDS ORDERED: acetaminophen 650mg rectal suppository RC PRN (16:30)
[2022-04-22] MEDS ORDERED: insulin Lispro (HumaLOG) vial - multi-dose SQ SCH (16:30)
[2022-04-22] MEDS ORDERED: HYDROcodone/acetaminophen 10/325mg tab PO PRN (16:30)
[2022-04-22] MEDS ORDERED: bisacodyl 10mg suppository rectal RC PRN (16:30)
[2022-04-22] MEDS ORDERED: ondansetron/PF 4mg/2ml inj IV PRN (16:30)
[2022-04-22] MEDS ORDERED: dextrose 50%-water 50ml dispensing syringe IV PRN ×2 (16:30)
[2022-04-22] MEDS ORDERED: sodium bicarbonate (8.4%) inj. 150 MEQ in sodium chloride 0.45% 850 ML IV SCH (16:30)
[2022-04-22] MEDS ORDERED: THYR30TA21 PO (16:34)
[2022-04-22 16:41] LABS: HEMOGLOBIN A1C 7.9 % (4.5-6.2)
[2022-04-22] MEDS ORDERED: MONT-40 PO (16:44)
[2022-04-22] MEDS ORDERED: CLOP75TA34 PO (16:44)
[2022-04-22] MEDS ORDERED: LOSA50TA64 PO (16:44)
[2022-04-22] MEDS ORDERED: LIRA0.6P2 SQ (16:44)
[2022-04-22] MEDS ORDERED: ALBU17AE26 PO (16:44)
[2022-04-22] MEDS ORDERED: NITR0.4T51 SL (16:46)
[2022-04-22] MEDS ORDERED: INSU100V37 SQ (17:11)
[2022-04-22] MEDS ORDERED: THY15T PO (17:11)
--- NOTE | 2022-04-22 17:46 | NUR ---
per pharmacy making bicarb at this time
[2022-04-22] MEDS ORDERED: sodium bicarbonate (8.4%) inj. 150 MEQ in sodium chloride 0.45% 1,000 ML IV SCH ×2 (17:52→22:40)
[2022-04-22 19:30] LABS: CLARITY,URINE CLEAR (Clear); COLOR,URINE YELLOW (Yellow); GLUCOSE, URINE NEGATIVE (Neg); KETONES,URINE NEGATIVE (Neg); LEUKOCYTE ESTERASE ,URINE NEGATIVE (Neg); NITRITES, URINE NEGATIVE (Neg); OCCULT BLOOD,URINE NEGATIVE (Neg); PH,URINE 5.5 (4.8-8.0); PROTEIN,URINE NEGATIVE (Neg); UA COLLECTION TYPE CLN CATCH MIDSTREAM; UROBILINOGEN,URINE 0.2 E.U/dL (0.2-1.0)
[2022-04-22] MEDS: docusate sod 100mg capsule PO SCH (20:00)
[2022-04-22] MEDS: K and/or MAG REPLACEMENT MC SCH (20:00)
[2022-04-22] MEDS: montelukast 10mg tablet PO SCH (20:58)
[2022-04-22] MEDS: heparin, porcine 5000 units/ml vial SQ SCH (21:00)
[2022-04-22] MEDS: insulin glargine (Lantus) pen - multi-dose SQ SCH (21:00)
[2022-04-22] MEDS ORDERED: temazepam 15mg capsule PO PRN (21:00)
[2022-04-22] MEDS ORDERED: sodium bicarbonate (8.4%) inj. 150 MEQ in water for injection, sterile 1,000 ML IV SCH (22:38)
[2022-04-23 06:00] VITALS: BP 120/71
[2022-04-23] MEDS: sodium bicarbonate (8.4%) inj. 150 MEQ in water for injection, sterile 1,000 ML IV SCH ×2 (06:06→18:43)
[2022-04-23] MEDS: acetaminophen 325mg tablet PO PRN ×2 (06:07→17:03)
[2022-04-23 06:23] LABS: ALANINE AMINOTRANSFERASE 21 U/L (12-78); ALBUMIN 2.9 G/DL (3.4-5.0); ALBUMIN/GLOBULIN RATIO 0.7 (1.1-1.5); ALKALINE PHOSPHATASE 100 IU/L (46-116); ANION GAP 12 (8-16); ASPARTATE AMINO TRANSFERASE 14 U/L (10-37); BILIRUBIN,TOTAL 0.2 MG/DL (0.1-1.0); BLOOD UREA NITROGEN 36 MG/DL (7-18); BUN/CREATININE RATIO 33.6 (6.6-38.0); CALCIUM 8.2 MG/DL (8.5-10.1); CHLORIDE 106 MMOL/L (99-107); CREATININE 1.07 MG/DL (0.40-0.90); GLUCOSE 115 MG/DL (70-104); PHOSPHORUS 3.6 MG/DL (2.3-4.5); POTASSIUM 3.4 MMOL/L (3.5-5.1); SODIUM 139 MMOL/L (135-145); TOTAL CARBON DIOXIDE 20.9 MMOL/L (24-32); TOTAL PROTEIN 6.9 G/DL (6.4-8.2); eGFR 52 ML/MIN
[2022-04-23 06:24] LABS: BASOPHILS % (AUTO) 0.4 % (0-1); EOSINOPHILS % (AUTO) 0.2 % (0-6); HEMATOCRIT 36.2 % (35.0-45.0); HEMOGLOBIN 12.1 g/dl (12.0-16.0); LYMPHOCYTES # (AUTO) 1.5 X10'3 (1.1-4.8); LYMPHOCYTES % (AUTO) 17.4 % (21-51); MEAN CORPUSCULAR HEMOGLOBIN 27.1 PG (27.0-31.0); MEAN CORPUSCULAR HGB CONC 33.4 g/dL (33.0-36.5); MEAN CORPUSCULAR VOLUME 81.3 FL (78-98); MEAN PLATELET VOLUME 8.6 FL (7.4-10.4); MONOCYTES # (AUTO) 0.6 X10'3 (0-0.9); MONOCYTES % (AUTO) 6.5 % (2-12); NEUTROPHILS # (AUTO) 6.7 X10'3 (1.8-7.7); NEUTROPHILS % (AUTO) 75.5 % (42-75); PLATELET COUNT 308 X10'3 (140-440); RED BLOOD COUNT 4.45 X10'6 (4.20-5.60); RED CELL DISTRIBUTION WIDTH 15.3 % (11.5-14.5); WHITE BLOOD COUNT 8.9 X10'3 (4.5-11.0)
[2022-04-23 06:31] VITALS: BP 127/84
--- NOTE | 2022-04-23 07:36 | NUR ---
0700 BG POCT at 97. pt ambulated to restroom SBA for bm
[2022-04-23 07:59] LABS: C DIFF SPECIMEN=DIARRHEA? ACCEPTABLE; C DIFFICILE TOXINS A&B NEGATIVE (Neg)
[2022-04-23] MEDS: docusate sod 100mg capsule PO SCH ×2 (08:00→20:00)
[2022-04-23] MEDS: thyroid, pork 30mg tablet PO SCH ×2 (08:00→10:08)
[2022-04-23] MEDS: K and/or MAG REPLACEMENT MC SCH ×2 (08:00→20:00)
[2022-04-23] MEDS: heparin, porcine 5000 units/ml vial SQ SCH ×2 (10:10→20:02)
[2022-04-23] MEDS: clopidogrel 75mg tablet PO SCH (10:10)
[2022-04-23] MEDS: POTASSIUM BICARB 20meq eff tab 20 MEQ TABLET.EFF PO PRN (10:11)
--- NOTE | 2022-04-23 11:42 | NUR ---
DM consult: Pt with T2DM, fairly well controlled with A1c 7.9%. Per EMR pt with improving trend in DM management, documented with A1c 10.0% 02/09/16 and 8.3% 03/01/17. Written DM education with RD contact information placed in patient's chart. Will remain available. Addendum: 04/23/22 at [address] Amended: Links added.
[2022-04-23 12:00] VITALS: BP 117/67
[2022-04-23 15:00] VITALS: BP 131/68
--- NOTE | 2022-04-23 16:51 | NUR ---
Paged MD per family and patient request. RM 3010, Q.E; Pt c.diff neg; wants immodium for diarrhea. Kayli Rose, RN
[2022-04-23 18:00] VITALS: BP 125/73
--- NOTE | 2022-04-23 18:15 | NUR ---
Patient in room U 3010. I have received report from ABBEY ANDERSON and had the opportunity to ask questions and assume patient care. Pt resting in bed, ayesha at bedside. no complaints. Addendum: 04/23/22 at 1853 by Abimbola Alex RN Amended: Links added.
--- NOTE | 2022-04-23 19:15 | NUR ---
Pt aox4, peruvian speaking, vss on ra. pt up to restroom multiple times for liquid BM. CDiff negative. tylenol given for abd pain and headache, per pt request. Does not want stronger pain medications. Pt has mild R sided weakness d/t past CVA. BG POCT wnl; no insulin protocol needed. All needs met in real time. Pt denies numbness, tingling, SOB, and dizziness at this time. NSR on monitor. Call light and water within reach. continue to monitor and treat per orders. JUSTIN POTTER
[2022-04-23] MEDS: montelukast 10mg tablet PO SCH (20:02)
[2022-04-23] MEDS: loperamide 2mg capsule PO PRN (20:02)
[2022-04-23 22:00] VITALS: BP 124/73
[2022-04-23] MEDS: insulin glargine (Lantus) pen - multi-dose SQ SCH (23:15)
[2022-04-24 02:00] VITALS: BP 126/78
[2022-04-24] MEDS: acetaminophen 325mg tablet PO PRN ×2 (04:32→13:32)
[2022-04-24] MEDS: sodium bicarbonate (8.4%) inj. 150 MEQ in water for injection, sterile 1,000 ML IV SCH (04:33)
--- NOTE | 2022-04-24 06:29 | NUR ---
Problems reprioritized. Patient report given, questions answered & plan of care reviewed with ABBEY ANDERSON. Addendum: 04/24/22 at 6229 by Abimbola Alex RN Amended: Links added.
[2022-04-24 06:55] LABS: BASOPHILS % (AUTO) 0.1 % (0-1); EOSINOPHILS % (AUTO) 0.2 % (0-6); HEMATOCRIT 36.3 % (35.0-45.0); HEMOGLOBIN 12.3 g/dl (12.0-16.0); LYMPHOCYTES # (AUTO) 1.7 X10'3 (1.1-4.8); LYMPHOCYTES % (AUTO) 24.7 % (21-51); MEAN CORPUSCULAR HEMOGLOBIN 27.1 PG (27.0-31.0); MEAN CORPUSCULAR HGB CONC 33.8 g/dL (33.0-36.5); MEAN CORPUSCULAR VOLUME 80.3 FL (78-98); MEAN PLATELET VOLUME 8.8 FL (7.4-10.4); MONOCYTES # (AUTO) 0.7 X10'3 (0-0.9); MONOCYTES % (AUTO) 10.2 % (2-12); NEUTROPHILS # (AUTO) 4.4 X10'3 (1.8-7.7); NEUTROPHILS % (AUTO) 64.8 % (42-75); PLATELET COUNT 300 X10'3 (140-440); RED BLOOD COUNT 4.53 X10'6 (4.20-5.60); RED CELL DISTRIBUTION WIDTH 14.7 % (11.5-14.5); WHITE BLOOD COUNT 6.8 X10'3 (4.5-11.0)
[2022-04-24 07:07] LABS: ALANINE AMINOTRANSFERASE 23 U/L (12-78); ALBUMIN/GLOBULIN RATIO 0.8 (1.1-1.5); ALKALINE PHOSPHATASE 101 IU/L (46-116); ANION GAP 11 (8-16); ASPARTATE AMINO TRANSFERASE 19 U/L (10-37); BILIRUBIN,TOTAL 0.3 MG/DL (0.1-1.0); BLOOD UREA NITROGEN 24 MG/DL (7-18); CHLORIDE 99 MMOL/L (99-107); GLUCOSE 125 MG/DL (70-104); MAGNESIUM 1.7 MG/DL (1.5-2.4); POTASSIUM 3.1 MMOL/L (3.5-5.1); SODIUM 138 MMOL/L (135-145); TOTAL CARBON DIOXIDE 27.9 MMOL/L (24-32); TOTAL PROTEIN 6.7 G/DL (6.4-8.2); eGFR 56 ML/MIN
[2022-04-24] MEDS: K and/or MAG REPLACEMENT MC SCH (07:19)
[2022-04-24] MEDS: docusate sod 100mg capsule PO SCH (07:26)
[2022-04-24] MEDS: thyroid, pork 30mg tablet PO SCH ×2 (07:49)
[2022-04-24] MEDS: clopidogrel 75mg tablet PO SCH (07:50)
[2022-04-24] MEDS: heparin, porcine 5000 units/ml vial SQ SCH (07:50)
[2022-04-24] MEDS: POTASSIUM BICARB 20meq eff tab 20 MEQ TABLET.EFF PO PRN (07:52)
--- NOTE | 2022-04-24 08:24 | NUR ---
Paged Dr. Mackey re: bicarb gtt. "Good Morning. RM 3010 still on bicarb drip. orders to stop for HCO3 at 15. none drawn. can we order lab? Thanks Kayli"
[2022-04-24] MEDS: loperamide 2mg capsule PO PRN (13:32)
--- NOTE | 2022-04-24 14:08 | NUR ---
PT has d/c order. Pt aox4, vss on ra, independent. Pt's dc packet reviewed with staff to interpret. All questions answered by RN and greenhouse staff. IVs removed. Pt requested tylenol and immodium prior to leaving for home. Tylenol and immodium given. Driven home by daughters. All needs met.
== END 2022-04-24 13:45 | disposition home or self-care (01) | DRG 249 ==
LOC: ER 09:22 → ED HOLD 16:40 → UNDOADMIN 16:47 → ED HOLD 16:47 → PCU 3S 04-23 05:25
PROVIDERS: ADMIT Family Medicine; ATTEND Family Medicine
DX: A08.4 Viral intestinal infection, unspecified (principal); N17.0 Acute kidney failure with tubular necrosis; E11.22 Type 2 diabetes mellitus with diabetic chronic kidney disease; E87.1 Hypo-osmolality and hyponatremia; E87.2 Acidosis; E11.69 Type 2 diabetes mellitus with other specified complication; T38.3X5A Adverse effect of insulin and oral hypoglycemic [antidiabetic] drugs, initial encounter; E03.9 Hypothyroidism, unspecified; E86.0 Dehydration; Z20.822 Contact with and (suspected) exposure to COVID-19; E78.5 Hyperlipidemia, unspecified; E87.6 Hypokalemia; Z96.652 Presence of left artificial knee joint; I12.9 Hypertensive chronic kidney disease with stage 1 through stage 4 chronic kidney disease, or unspecified chronic kidney disease; I25.10 Atherosclerotic heart disease of native coronary artery without angina pectoris; N18.30 Chronic kidney disease, stage 3 unspecified; Z79.4 Long term (current) use of insulin; Z90.710 Acquired absence of both cervix and uterus; Z88.0 Allergy status to penicillin; Z88.5 Allergy status to narcotic agent; Y92.89 Other specified places as the place of occurrence of the external cause; Z90.49 Acquired absence of other specified parts of digestive tract; I69.351 Hemiplegia and hemiparesis following cerebral infarction affecting right dominant side
CPT/HCPCS: 36415; 36600; 74176; 80053; 81003; 82009; 82803; 82948; 83036; 83735; 84100; 85018; 85025; 87081; 87324; 87449; 87635; 99285; A6258; C9803; G0378; J1644; J1815; J3490; J7030

== ENCOUNTER 2022-04-28 15:44 | Inpatient (IN) | payer MEDICAID ==
[~2022-04-28] VITALS: Ht 162.6 cm; Wt 92.7 kg
[~2022-04-28 15:44] MED LIST changes: +ALBU17AE26 PO; -ATOR10TA87 PO; +ATOR40TA72 PO; -CLOP75TA15 PO; +CLOP75TA34 PO; -FURO-150 PO; -LIRA0.6P SQ; +LIRA0.6P2 SQ; -LORA-269 PO; -LOSA50TA64 PO; -NITR0.4T48 SL; +NITR0.4T51 SL; -SULF1TAB49 PO; +THY15T PO; +THYR30TA21 PO; -THYR60TA2 PO
[2022-04-28] MEDS ORDERED: aspirin 81mg tab.chew PO ONE (16:00)
[2022-04-28] MEDS ORDERED: ondansetron/PF 4mg/2ml inj IV ONE (16:00)
[2022-04-28] MEDS ORDERED: normal saline 1000ML IV soln IVB ONE (16:00)
[2022-04-28] MEDS ORDERED: morphine 4 MG/ML inj SYRINge IV ONE (16:00)
[2022-04-28 16:44] LABS: BASOPHILS % (AUTO) 0.3 % (0-1); EOSINOPHILS # (AUTO) 0.3 X10'3 (0-0.9); EOSINOPHILS % (AUTO) 2.5 % (0-6); HEMOGLOBIN 11.4 g/dl (12.0-16.0); LYMPHOCYTES % (AUTO) 39.3 % (21-51); MEAN CORPUSCULAR HEMOGLOBIN 27.1 PG (27.0-31.0); MEAN CORPUSCULAR HGB CONC 33.5 g/dL (33.0-36.5); MEAN CORPUSCULAR VOLUME 80.8 FL (78-98); MEAN PLATELET VOLUME 8.3 FL (7.4-10.4); MONOCYTES # (AUTO) 0.6 X10'3 (0-0.9); NEUTROPHILS # (AUTO) 5.3 X10'3 (1.8-7.7); NEUTROPHILS % (AUTO) 51.9 % (42-75); PLATELET COUNT 393 X10'3 (140-440); RED BLOOD COUNT 4.21 X10'6 (4.20-5.60); RED CELL DISTRIBUTION WIDTH 14.6 % (11.5-14.5); WHITE BLOOD COUNT 10.2 X10'3 (4.5-11.0)
[2022-04-28 16:46] LABS: ALANINE AMINOTRANSFERASE 63 U/L (12-78); ALBUMIN 3.1 G/DL (3.4-5.0); ALBUMIN/GLOBULIN RATIO 0.9 (1.1-1.5); ALKALINE PHOSPHATASE 105 IU/L (46-116); ANION GAP 11 (8-16); ASPARTATE AMINO TRANSFERASE 29 U/L (10-37); BILIRUBIN,TOTAL 0.1 MG/DL (0.1-1.0); BLOOD UREA NITROGEN 7 MG/DL (7-18); BUN/CREATININE RATIO 7.1 (6.6-38.0); CALCIUM 8.5 MG/DL (8.5-10.1); CHLORIDE 109 MMOL/L (99-107); CREATININE 0.99 MG/DL (0.40-0.90); GLUCOSE 125 MG/DL (70-104); POTASSIUM 3.3 MMOL/L (3.5-5.1); SODIUM 142 MMOL/L (135-145); TOTAL CARBON DIOXIDE 21.7 MMOL/L (24-32); TOTAL PROTEIN 6.5 G/DL (6.4-8.2); eGFR 57 ML/MIN
[2022-04-28] MEDS ORDERED: metoprolol tartrate 50mg tablet PO ONE (17:00)
[2022-04-28] MEDS ORDERED: HYDROcodone/acetaminophen 5mg/325mg tablet PO PRN (17:35)
[2022-04-28] MEDS ORDERED: potassium CL 10mEq/100ml bag 100 ML IV PRN (17:35)
[2022-04-28] MEDS ORDERED: ondansetron/PF 4mg/2ml inj IV PRN (17:35)
[2022-04-28] MEDS ORDERED: magnesium 2GM in 50ml NS 50 ML IV PRN (17:35)
[2022-04-28] MEDS ORDERED: magnesium Cl slow-release 64mg tablet PO PRN (17:35)
[2022-04-28] MEDS ORDERED: magnesium 4gm in 100ml NS 100 ML IV PRN (17:35)
[2022-04-28] MEDS ORDERED: POTASSIUM BICARB 20meq eff tab 20 MEQ TABLET.EFF PO PRN ×2 (17:35)
[2022-04-28] MEDS ORDERED: acetaminophen 325mg tablet PO PRN ×2 (17:35)
[2022-04-28] MEDS ORDERED: HYDROcodone/acetaminophen 10/325mg tab PO PRN (17:35)
[2022-04-28] MEDS ORDERED: morphine 2 MG/ML inj. syringe IV PRN ×2 (17:35)
[2022-04-28] MEDS ORDERED: MESSAGE TO PHARMACY PO ONE (17:40)
[2022-04-28] MEDS ORDERED: nitroGLYCERIN 0.4mg SUBLingual tab SL PRN (17:40)
[2022-04-28] MEDS ORDERED: metoprolol tartrate 1mg/ml inj IV PRN (17:40)
[2022-04-28] MEDS ORDERED: DEXTROSE 15 GM of carb/4 tabs (each vial/BOTTLE has 4 tablets) PO PRN ×2 (17:40)
[2022-04-28] MEDS ORDERED: glucagon, human recombinant 1mg kit SUBCUT PRN (17:40)
[2022-04-28] MEDS ORDERED: aminophylline 500mg/20ml vial IV PRN (17:40)
[2022-04-28] MEDS ORDERED: regadenoson 0.4mg/5ml syringe IV PRN (17:40)
[2022-04-28] MEDS ORDERED: dextrose 50%-water 50ml dispensing syringe IV PRN ×2 (17:40)
[2022-04-28] MEDS ORDERED: insulin Lispro (HumaLOG) vial - multi-dose SQ SCH (17:40)
[2022-04-28] MEDS: normal saline 1000ml 1,000 ML IV SCH (18:00)
[2022-04-28] MEDS ORDERED: albuterol 2.5 MG/3 ML nebule NEB PRN (18:35)
[2022-04-28] MEDS ORDERED: heparin, porcine 5000 units/ml vial SQ SCH (20:00)
[2022-04-28] MEDS: K and/or MAG REPLACEMENT MC SCH (20:15)
[2022-04-28] MEDS ORDERED: temazepam 15mg capsule PO PRN (21:00)
[2022-04-28] MEDS ORDERED: montelukast 10mg tablet PO SCH (21:00)
[2022-04-28] MEDS ORDERED: insulin glargine (Lantus) pen - multi-dose SQ SCH (21:00)
[2022-04-28 21:41] LABS: CLARITY,URINE CLEAR (Clear); COLOR,URINE YELLOW (Yellow); GLUCOSE, URINE NEGATIVE (Neg); KETONES,URINE NEGATIVE (Neg); LEUKOCYTE ESTERASE ,URINE NEGATIVE (Neg); NITRITES, URINE NEGATIVE (Neg); OCCULT BLOOD,URINE NEGATIVE (Neg); PROTEIN,URINE NEGATIVE (Neg); UROBILINOGEN,URINE 0.2 E.U/dL (0.2-1.0)
[2022-04-28 22:01] LABS: UA COLLECTION TYPE CLN CATCH MIDSTREAM
[2022-04-29] VITALS (9 sets, daily range): BP systolic 123–157; BP diastolic 59–72
[2022-04-29] MEDS: normal saline 1000ml 1,000 ML IV SCH (03:59)
--- NOTE | 2022-04-29 06:38 | NUR ---
ASSUMED CARE. PT RESTING W/O COMPLAINTS. BED LOCKED AND LOW, CALL LIGHT IN REACH. PT DENIES PAIN AT THIS TIME AND HAS NO REQUESTS.
[2022-04-29] MEDS: K and/or MAG REPLACEMENT MC SCH (08:00)
[2022-04-29] MEDS ORDERED: clopidogrel 75mg tablet PO SCH (08:00)
[2022-04-29 09:25] LABS: BASOPHILS % (AUTO) 0.2 % (0-1); EOSINOPHILS # (AUTO) 0.2 X10'3 (0-0.9); EOSINOPHILS % (AUTO) 2.1 % (0-6); HEMATOCRIT 32.6 % (35.0-45.0); LYMPHOCYTES # (AUTO) 3.2 X10'3 (1.1-4.8); LYMPHOCYTES % (AUTO) 31.7 % (21-51); MEAN CORPUSCULAR HEMOGLOBIN 27.5 PG (27.0-31.0); MEAN CORPUSCULAR HGB CONC 33.6 g/dL (33.0-36.5); MEAN CORPUSCULAR VOLUME 81.8 FL (78-98); MEAN PLATELET VOLUME 8.1 FL (7.4-10.4); MONOCYTES # (AUTO) 0.5 X10'3 (0-0.9); MONOCYTES % (AUTO) 4.6 % (2-12); NEUTROPHILS # (AUTO) 6.2 X10'3 (1.8-7.7); NEUTROPHILS % (AUTO) 61.4 % (42-75); PLATELET COUNT 345 X10'3 (140-440); RED BLOOD COUNT 3.99 X10'6 (4.20-5.60); WHITE BLOOD COUNT 10.1 X10'3 (4.5-11.0)
[2022-04-29 09:47] LABS: ALANINE AMINOTRANSFERASE 52 U/L (12-78); ALBUMIN 2.8 G/DL (3.4-5.0); ALBUMIN/GLOBULIN RATIO 0.8 (1.1-1.5); ALKALINE PHOSPHATASE 88 IU/L (46-116); ANION GAP 10 (8-16); ASPARTATE AMINO TRANSFERASE 24 U/L (10-37); BILIRUBIN,TOTAL 0.3 MG/DL (0.1-1.0); BLOOD UREA NITROGEN 9 MG/DL (7-18); BUN/CREATININE RATIO 11.7 (6.6-38.0); CHLORIDE 110 MMOL/L (99-107); CREATININE 0.77 MG/DL (0.40-0.90); GLUCOSE 118 MG/DL (70-104); POTASSIUM 3.9 MMOL/L (3.5-5.1); SODIUM 142 MMOL/L (135-145); TOTAL CARBON DIOXIDE 22.5 MMOL/L (24-32); TOTAL PROTEIN 6.2 G/DL (6.4-8.2); eGFR 76 ML/MIN
--- NOTE | 2022-04-29 10:08 | NUR ---
PAGED TO FOR MEDICATION CLARIFICATION
--- NOTE | 2022-04-29 10:15 | NUR ---
DR. VAUGHN GAVE VERBAL ORDER TO DC HEPARIN
== END 2022-04-29 20:22 | disposition home or self-care (01) | DRG 243 ==
LOC: ER 15:45 → ED HOLD 17:35 → CANBEDREQ 04-29 13:14
PROVIDERS: ADMIT Internal Medicine; ATTEND Internal Medicine
PROC: 4A02XM4 Measurement of Cardiac Total Activity, External Approach (ICD-10-PCS; principal; 2022-04-28)
PROC: 3E033HZ Introduction of Radioactive Substance into Peripheral Vein, Percutaneous Approach (ICD-10-PCS; 2022-04-28)
DX: K21.9 Gastro-esophageal reflux disease without esophagitis (principal); E11.22 Type 2 diabetes mellitus with diabetic chronic kidney disease; I69.351 Hemiplegia and hemiparesis following cerebral infarction affecting right dominant side; I25.119 Atherosclerotic heart disease of native coronary artery with unspecified angina pectoris; E03.9 Hypothyroidism, unspecified; E11.65 Type 2 diabetes mellitus with hyperglycemia; E66.9 Obesity, unspecified; F41.9 Anxiety disorder, unspecified; E78.5 Hyperlipidemia, unspecified; N18.9 Chronic kidney disease, unspecified; E87.6 Hypokalemia; I12.9 Hypertensive chronic kidney disease with stage 1 through stage 4 chronic kidney disease, or unspecified chronic kidney disease; Z90.710 Acquired absence of both cervix and uterus; Z88.0 Allergy status to penicillin; Z88.8 Allergy status to other drugs, medicaments and biological substances; Z68.35 Body mass index [BMI] 35.0-35.9, adult
CPT/HCPCS: 36415; 71045; 78452; 80053; 81003; 83880; 84443; 84484; 85025; 93017; 93306; 96374; 96375; 99285; A9500; G0378; J1644; J1815; J2270; J2405; J2785; J7030

== ENCOUNTER 2022-07-04 21:30 | Emergency (ER) | payer MEDICAID ==
[~2022-07-04] VITALS: Ht 162.6 cm; Wt 92.0 kg
[~2022-07-04 21:30] MED LIST changes: -METF-437 PO
[2022-07-04 21:49] VITALS: BP 136/73
--- NOTE | 2022-07-04 23:52 | NUR ---
PT WAS INJECTING HOME INSULIN USING INSLULIN PEN, WHEN SHE NOTED THAT SUBQ NEEDLE BROKE OFF INTO LLQ ABD. BRUISING NOTED FROM MULTIPLE INJECTION SITES, PT STATES "BURNING DISCOMOFORT", NO FORIEGN OBJECT IS VISIBLE AT THIS TIME.
== END 2022-07-05 02:12 | disposition home or self-care (01) ==
LOC: ER 21:30
DX: S30.851A Superficial foreign body of abdominal wall, initial encounter (principal); I11.9 Hypertensive heart disease without heart failure; E03.9 Hypothyroidism, unspecified; I10 Essential (primary) hypertension; E11.9 Type 2 diabetes mellitus without complications; Z88.0 Allergy status to penicillin; X58.XXXA Exposure to other specified factors, initial encounter; Y93.89 Activity, other specified; Y92.89 Other specified places as the place of occurrence of the external cause; Y99.8 Other external cause status
CPT/HCPCS: 74019; 99283

== ENCOUNTER 2024-01-02 12:58 | Outpatient (CLI) | payer MEDICAID | END 2024-01-02 23:59 | disposition home or self-care (01) | LOC: RAD 12:58 | PROVIDERS: ATTEND Physician Assistant | DX: R10.2 Pelvic and perineal pain (principal); Z90.710 Acquired absence of both cervix and uterus | CPT/HCPCS: 76830; 76857 ==

== ENCOUNTER 2025-02-11 14:45 | Inpatient (IN) | payer MEDICAID ==
[~2025-02-11] VITALS: Ht 162.6 cm; Wt 82.9 kg
[2025-02-11 15:17] LABS: BASOPHILS % (AUTO) 0.1 % (0-1); EOSINOPHILS % (AUTO) 0.3 % (0-6); HEMATOCRIT 36.2 % (35.0-45.0); LYMPHOCYTES # (AUTO) 1.1 X10'3 (1.1-4.8); LYMPHOCYTES % (AUTO) 11.1 % (21-51); MEAN CORPUSCULAR HEMOGLOBIN 27.3 PG (27.0-31.0); MEAN CORPUSCULAR HGB CONC 33.2 g/dL (33.0-36.5); MEAN CORPUSCULAR VOLUME 82.3 FL (78-98); MEAN PLATELET VOLUME 8.3 FL (7.4-10.4); MONOCYTES # (AUTO) 0.4 X10'3 (0-0.9); MONOCYTES % (AUTO) 4.3 % (2-12); NEUTROPHILS # (AUTO) 8.7 X10'3 (1.8-7.7); NEUTROPHILS % (AUTO) 84.2 % (42-75); PLATELET COUNT 293 X10'3 (140-440); RED CELL DISTRIBUTION WIDTH 17.8 % (11.5-14.5); WHITE BLOOD COUNT 10.3 X10'3 (4.5-11.0)
[2025-02-11 15:36] LABS: ALANINE AMINOTRANSFERASE 23 U/L (12-78); ALBUMIN 3.7 G/DL (3.4-5.0); ALBUMIN/GLOBULIN RATIO 1.1 (1.1-1.5); ALKALINE PHOSPHATASE 132 IU/L (46-116); ANION GAP 16 (8-16); ASPARTATE AMINO TRANSFERASE 15 U/L (10-37); BILIRUBIN,TOTAL 0.4 MG/DL (0.1-1.0); BLOOD UREA NITROGEN 19 MG/DL (7-18); BUN/CREATININE RATIO 14.2 (10.0-20.0); CALCIUM 9.2 MG/DL (8.5-10.1); CHLORIDE 108 MMOL/L (99-107); CREATININE 1.34 MG/DL (0.40-0.90); GLUCOSE 317 MG/DL (70-104); LIPASE 54 U/L (16-77); POTASSIUM 3.5 MMOL/L (3.5-5.1); SODIUM 139 MMOL/L (135-145); TOTAL CARBON DIOXIDE 15.1 MMOL/L (24-32); TOTAL PROTEIN 7.1 G/DL (6.4-8.2); eCRCL 36 ML/MIN; eGFR 40 ML/MIN
--- NOTE | 2025-02-11 16:40 | Physician Documentation ---
History of Present Illness Chief Complaint: Multiple Medical Complaints Stated Complaint: NUMBNESS Time Seen by MD: 16:19 HPI This pleasant 64-year-old female presents to the ED with a complaint of acute onset numbness in her face bilateral arms and legs just after eating food that s he had made which led to her vomiting. Patient does have a history of stroke that happened 15 years ago and continues to take Plavix as directed. Addition she has a history of angina that she can take nitro for. She currently denies any chest pain Patient is a known diabetic with blood sugars in the 300s today. States that her A1c is normally around seven. Day of Onset: Feb 11, 2025 Medication Reconciliation Allergies: Coded Allergies: insulin degludec (Verified Allergy, Unknown, 02/11/25) insulin glargine (Verified Allergy, Unknown, 02/11/25) oxycodone (Verified Allergy, Unknown, RASH, 02/11/25) Penicillins (Verified Adverse Reaction, Unknown, SWEAT./ANXIOUS, "CANNOT BREATHE", 02/11/25) Scheduled Atorvastatin Calcium (Atorvastatin Calcium), MG PO DAILY, (Reported) Clopidogrel Bisulfate (Clopidogrel), 1 TAB PO DAILY, (Reported) Hum Insulin Nph/Reg Insulin Hm (Novolin 70-30 100 Unit/Ml 10ML Vial), 35 UNITS SQ QAM, (Reported) Hum Insulin Nph/Reg Insulin Hm (Novolin 70-30 100 Unit/Ml 10ML Vial), 30 UNITS SQ QPM, (Reported) Liraglutide (Victoza 3-Hiro), 1.2 MG SQ DAILY, (Reported) Montelukast Sodium (Montelukast Sodium), 1 TAB PO QPM, (Reported) Thyroid* ([place] Thyroid*), 1 TAB PO DAILY, (Reported) Thyroid,Pork ([place] Thyroid), 1 TAB PO DAILY, (Reported) Scheduled PRN Albuterol (Albuterol), 2 PUFF PO Q4H PRN for SOB or wheezing, (Reported) Nitroglycerin SL* (Nitrostat SL*), 1 TAB SL Q5MIN PRN for Chest pain Q5min PRNx3-call MD, (Reported) Past Medical History Past Medical History: CVA/TIA/Stroke, Headache, Angina, Coronary Artery Disease, Hypertension, Diabetes, Hypothyroidism Past Surgical History: hysterectomy Other Past Surgical History: left knee surgery, hernia repair Alcohol Use: None Drug Use: none Lives with: Family Lives In: Home Occupation: employed Past Social History: full code Review of Systems All Other Systems at this time: Reviewed and Negative ROS As stated above in the HPI, otherwise all systems are reviewed and negative. Physical Exam Vital Signs: Temperature: 96.7, Source: Temporal, Heart Rate: 67, Respiratory Rate: 15, BP: 130/65, Pulse Oximetry: 98, Weight: 82.900 Oxygen Flow Rate: 0 Physical Exam General: Alert, no apparent distress. Respiratory: Lungs clear, no respiratory distress. Cardiovascular: Regular rate and rhythm, no murmurs. Gastrointestinal: Soft, tender right lower quadrant, mildly distended Bowels sounds present. Neurologic: Oriented x4. Neurologically intact equal strength bilaterally. no Focal deficits Psychiatric: Normal mood and affect. Progress Results/Orders Results/Orders Vital Signs 02/11/25 02/11/25 02/11/25 02/11/25 14:47 15:37 16:02 16:34 Temp 96.7 96.7 Pulse 74 66 67 Resp 20 16 15 B/P (MAP) 155/81 143/69 (93) 130/65 (86) Pulse Ox 100 99 98 O2 Flow Rate 0 0 Laboratory Tests Test 02/11/25 14:50 02/11/25 15:08 Glucometer 316 H White Blood Count 10.3 Red Blood Count 4.40 Hemoglobin 12.0 Hematocrit 36.2 Mean Corpuscular Volume 82.3 Mean Corpuscular Hemoglobin 27.3 Mean Corpuscular Hemoglobin Concent 33.2 Red Cell Distribution Width 17.8 H Platelet Count 293 Mean Platelet Volume 8.3 Neutrophils (%) (Auto) 84.2 H Lymphocytes (%) (Auto) 11.1 L Monocytes (%) (Auto) 4.3 Eosinophils (%) (Auto) 0.3 Basophils (%) (Auto) 0.1 Neutrophils # (Auto) 8.7 H Lymphocytes # (Auto) 1.1 Monocytes # (Auto) 0.4 Eosinophils # (Auto) 0.0 Basophils # (Auto) 0.0 CBC Comment Sodium Level 139 Potassium Level 3.5 Chloride Level 108 H Carbon Dioxide Level 15.1 L Anion Gap 16 Blood Urea Nitrogen 19 H Creatinine 1.34 H Estimated GFR/1.73 m2 40 BUN/Creatinine Ratio 14.2 Glucose Level 317 H Calcium Level 9.2 Total Bilirubin 0.4 Aspartate Amino Transf (AST/SGOT) 15 Alanine Aminotransferase (ALT/SGPT) 23 Alkaline Phosphatase 132 H Total Protein 7.1 Albumin 3.7 Globulin 3.4 Albumin/Globulin Ratio 1.1 Lipase 54 Chemistry Comments Medical Decision Making Differential Dx:Considerations: Include: AAA, -Complete, - Incomplete, -Inevitable, -Missed, -Threatened, Abruptio placentae, Angina/NC, Aortic dissection, Appendicitis, Bowel obstruction, Cholangitis, Cholelithasis, Constipation, Diverticular disease, Esophageal rupture, Esophagitis, Gastritis/PUD, Gastroenteritis, GI hemorrhage, Hernia, Hepatitis, Inflammatory BD, Ischemic bowel, Ovarian cyst/torsion, Pancreatitis, PID, Porphyria, Trauma, intraabdominal, Urinary obstruction, Urinary tract infection, Urolithiasis, Other Departure Disposition: ADMITTED INPATIENT Impression: Primary Impression: Abdominal pain Additional Impressions: Diabetes mellitus CVA (cerebral vascular accident) Nausea & vomiting Numbness and tingling in both hands NEGRITO (acute kidney injury) Condition: Stable Referrals: NO PRIMARY CARE PROVIDER (PCP) Signature Scribe Signature: f Attestation: The note accurately reflects work and decisions made by me.Cherie Whittington NP 02/11/25 17:10 CHERIE RUTHERFORD NP Feb 11, 2025 16:40
[2025-02-11] MEDS ORDERED: potassium Cl 20 mEq SR tablet PO PRN ×2 (17:20)
[2025-02-11] MEDS ORDERED: magnesium sulf-water 2g/50mL 50 ML IV PRN (17:20)
[2025-02-11] MEDS ORDERED: magnesium sulf-water 4G/100mL 100 ML IV PRN (17:20)
[2025-02-11] MEDS ORDERED: magnesium Cl slow-release 64mg tablet PO PRN (17:20)
[2025-02-11] MEDS ORDERED: ondansetron/PF 4mg/2ml inj IV PRN (17:20)
[2025-02-11] MEDS ORDERED: acetaminophen 325mg tablet PO PRN ×2 (17:20)
[2025-02-11] MEDS ORDERED: potassium Cl 40MEQ/1/2NS 520ml 520 ML IV PRN (17:20)
[2025-02-11 17:21] LABS: PRO BRAIN NATRIURETIC PEPTIDE 233 PG/ML (0-125)
--- NOTE | 2025-02-11 17:21 | RADIOLOGY REPORT ---
CHEST RADIOGRAPH Indication: CP Technique: Single frontal view of the chest was obtained COMPARISON: CHEST,SINGLE VIEW on DOS: 04/28/22, CHEST,SINGLE VIEW on DOS: 08/19/21, CHEST,SINGLE VIEW on DOS: 03/05/21 FINDINGS: Lines and Tubes: None Lungs: Clear Pleura: No effusion. No pneumothorax. Cardiomediastinal contours: Unremarkable Bones: Unremarkable IMPRESSION: 1. No acute disease.
[2025-02-11] MEDS: normal saline 1000ML IV soln IVB ONE (17:23)
[2025-02-11] MEDS ORDERED: DEXTROSE 15 GM of carb/4 tabs (each vial/BOTTLE has 4 tablets) PO PRN ×2 (17:25)
[2025-02-11] MEDS ORDERED: dextrose 50%-water 50ml dispensing syringe IV PRN ×2 (17:25)
[2025-02-11] MEDS ORDERED: glucagon, human recombinant 1mg kit SUBCUT PRN (17:25)
--- NOTE | 2025-02-11 17:34 | ELECTROCARDIOGRAPH REPORT ---
[facility] Test Date: 2025-02-11 Test Time: 17:32:57 Pat Name: YARI SAENZ Department: [facility]- Patient ID: [facility]-[id number] Room: Gender: F Disk Recoater: : 1960 Requested By: CHERIE RUTHERFORD Order Number: [id number] Reading MD: Measurements Intervals [place] Rate: 56 P: 52 AL: 191 QRS: 34 QRSD: 100 T: 29 QT: 454 QTc: 439 Interpretive Statements Atrial-paced complexes Please click the below link to view image of tracing.
[2025-02-11] MEDS: normal saline 1000ml 1,000 ML IV SCH (17:36)
[2025-02-11 17:46] LABS: URINE HCG NEGATIVE (NEG)
[2025-02-11 17:58] LABS: BILIRUBIN,URINE NEGATIVE (Neg); CLARITY,URINE CLEAR (Clear); COLOR,URINE YELLOW (Yellow); GLUCOSE, URINE >=1000 mg/dl (Neg); KETONES,URINE NEGATIVE (Neg); LEUKOCYTE ESTERASE ,URINE SMALL (Neg); NITRITES, URINE NEGATIVE (Neg); OCCULT BLOOD,URINE NEGATIVE (Neg); PROTEIN,URINE NEGATIVE (Neg); UROBILINOGEN,URINE 0.2 E.U/dL (0.2-1.0)
[2025-02-11 17:59] LABS: UA COLLECTION TYPE NON-SPECIFIED
[2025-02-11 18:03] LABS: BACTERIA,URINE 1+ /HPF (Neg); RBC,URINE 0-2 /HPF (0-2); SQUAMOUS EPITHELIAL CELL,UR FEW /LPF (FEW)
--- NOTE | 2025-02-11 18:29 | RADIOLOGY REPORT ---
Procedure: CT [facility] Study Date and Requested Time: 02/11/2025 06:02 PM History: numbness hx cva Comparison: CT HEAD on DOS: 08/19/21 Dose: CTDI: 55.74 mGy DLP: 996.1 mGycm Technique: Multiplanar images obtained through the brain without intravenous contrast. Findings: Normal brain volume and formation. No hemorrhages, masses, mass effect, midline shift, herniation or cytotoxic edema following a large v ascular territory. No intra-axial or extra-axial fluid collections. No evidence of hydrocephalus. The basal cisterns are patent. The pituitary gland, sella and parasellar regions are unremarkable. The cerebellar tonsils are in nor mal position. The cerebellum is unremarkable. The orbits and globes are unremarkable. The paranasal sinuses and mastoids are clear. There are no wo rrisome calvarial lesions. Partially imaged 1.3 x 1.9 cm right parotid lesion, previously measuring 1 .2 x 1.5 cm in 2020 Impression: No evidence of acute intracranial abnormality.
--- NOTE | 2025-02-11 19:56 | HISTORY AND PHYSICAL ---
History & Physical Providers to CC ~ History of Present Illness Reason for Admit\\Complaint: numbness which she noticed around the mouth and over the extremities History of Present Illness This is a 62-year-old female who has known history of diabetes, hypertension, hyperlipidemia, history of old CVA, right-sided deficit, hypothyroidism, chronic kidney disease. Patient currently follows in [facility] with PCP. As per daughter she is currently taking Mounjaro for diabetes control . she is not on Jardiance and she is not able to tolerate insulin Lantus and feels that she is out of breath after taking Lantus insulin. Daughter mentioned that she is able to tolerate Levemir insulin better than Lantus insulin. Main reason for patient's visit today was numbness which she noticed around the mouth and over the both hand and feet after eating pork in the morning. Patient is able to ambulate as per daughter. She also gets off and on right abdominal pain which radiates towards her right flank. Urine testing was done which was negative for any UTI. Patient also had four episodes of diarrhea and it is like watery stools, one episode of vomiting. She took antibiotics for UTI two weeks back Patient's daughter feels that her hemoglobin A1c was around 7 with PCP even though in ER her blood sugars are in 300s. Patient also has issues with the constipation she had blood in stools for which colonoscopy was done and they found one polyp and rest of the study was unremarkable. Further workup done in ER hospitalist services contacted for admission for stroke-like symptoms, worsening of her renal function and other multiple issues mentioned above. Allergies: Coded Allergies: insulin degludec (Verified Allergy, Unknown, 02/11/25) insulin glargine (Verified Allergy, Unknown, 02/11/25) oxycodone (Verified Allergy, Unknown, RASH, 02/11/25) Penicillins (Verified Adverse Reaction, Unknown, SWEAT./ANXIOUS, "CANNOT BREATHE", 02/11/25) Home Medications Home Medications Active Reported [place] Thyroid* (Thyroid) 15 Mg Tablet 1 Tab PO DAILY take with 30 mg Novolin 70-30 100 Unit/Ml 10ML Vial (Insulin Human Isoph/Insulin Regular) 100 Unit/1 Ml Ml 30 Units SQ QPM Nitrostat SL* (Nitroglycerin) 0.4 Mg Tablet 1 Tab SL Q5MIN PRN Albuterol 17 Gm Aerosol 2 Puff PO Q4H PRN Montelukast Sodium 10 Mg Tablet 1 Tab PO QPM 30 Days Victoza 3-Hiro (Liraglutide) 0.6 Mg/0.1 Ml Pen.injctr 1.2 Mg SQ DAILY Clopidogrel (Clopidogrel Bisulfate) 75 Mg Tablet 1 Tab PO DAILY 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 Past Social History Social History Comment The patient denies use of any alcohol, tobacco or drugs,The patient is a [place]an-speaking female, daughter did all the translation in presence of nursing staff. Exam Vitals: Vital Signs Date Time Temp Pulse Resp B/P (MAP) Pulse Ox O2 Delivery O2 Flow Rate FiO2 02/11/25 16:34 96.7 67 15 130/65 (86) 98 0 General: GENERAL: The patient appears not in any acute distress. VITAL SIGNS: Stable. HEENT: Atraumatic, normocephalic. NECK: No elevated JVD, no enlarged lymph node, no carotid bruit, no elevated JVD. EYES: No icterus or pallor present in eyes. Pupils reactive to light bilaterally, normal in size. LUNGS: Clear lung sounds to auscultation. No signs of any crackles or wheezing noticed. CARDIOVASCULAR: S1, S2 normal. No murmur. ABDOMEN: Soft, obese, signs of mild discomfort present on palpation over right side of the abdomen. No guarding or rigidity. Bowel sounds present. EXTREMITIES: No pedal edema noticed bilaterally. Able to move all 4 extremities. NEUROLOGIC: Alert, awake, oriented, cooperated during physical examination. No focal neurological deficit no drooping of angle of mouth no arm drift no weakness over the extremities no speech abnormality Diagnostic Data Last Recorded Lab Results: 02/11/25 1508 02/11/25 1508 Additional Plan 1. Stroke-like symptoms 2. Type 2 diabetes, uncontrolled. 3. Hypertension. 4. Hyperlipidemia. 5. History of cerebrovascular accident with right-sided deficits. 6. Hypothyroidism. 7. Right lower abdominal pain, nausea vomiting 8 history of recent UTI 9. Deep venous thrombosis, prophylaxis ordered. 10 code status discussed with the patient patient wishes to stay full code daughter present at bedside The patient will be admitted to PCU for above-mentioned admitting diagnoses. We will do home medication reconciliation once updated in electronic record system. The patient's current condition is guarded. Further workup ordered for stroke-like symptoms which include MRI MRA carotid Doppler studies we will continue to monitor neuro checks. The patient's current condition is guarded. Further management depending on response to treatment and outcome of the test results. I will continue to follow up the patient in the a.m. Date of Service: Feb 11, 2025 Billing Provider: CARYL VAUGHN MD Common Visit Codes: [id number] INP/OBS CARE (HIGH) Secondary Visit Codes: [id number] CARE PLAN 30 MINUTES CARYL VAUGHN MD Feb 11, 2025 19:56
[2025-02-11] MEDS: heparin, porcine 5000 units/ml vial SQ SCH (20:52)
[2025-02-11] MEDS: INSULIN LISPRO 100 UNIT/ML INSULN.PEN MULTI-DOSE SQ SCH (20:56)
[2025-02-11 21:30] VITALS: BP 163/86; PULSE 61; RESP 15; TEMP 97.8; O2SAT 100
--- NOTE | 2025-02-11 23:59 | CONSULTATION REPORT ---
History of Present Illness Providers to CC ~ Reason for Admit\\Admit Dx: numbness which she noticed around the mouth and over the extremities History of Present Illness [place] [facility] Note # Demographics Consult Type: Acute Stroke Level 2 (4.5-24 hrs) Patient Location: Inpatient First Name: Carley Last Name: Rachael Date of : 1960 Age: 64 Gender: Female Facility: [facility] Time of Initial Page ([place] Time): 02/11/2025 22:27 Time of Return Call ([place] Time): 02/11/2025 22:29 # HPI History: 64 year-old female with a history of right-sided weakness was admitted with worsening of her baseline right-sided weakness with new right-sided numbness. She was last known normal this morning. # Exam Vitals: vital signs reviewed # H-FH-SH Past Medical History: - hypertension - hyperlipidemia # Data Head CT: - no bleed # Assessment Impression: Right-sided numbness and weakness - possible stroke versus recrudescence or other mimic # Plan Thrombolytic/Intervention: NOT IV Thrombolysis or IA Intervention candidate Thrombolytic Exclusion: > 4.5 hours Intraarterial Exclusion: - clinical exam not consistent with presence of large vessel occlusion (LVO), can reconsider if LVO found on vascular imaging Labs: - hemoglobin A1c - lipid panel Imaging: (urgency: STAT): - CT Angiogram Head and CT Angiogram Neck AND call back with results if abnormal Imaging: (urgency: routine): - MRI Brain without contrast Therapy/Evaluation: - NPO until swallow evaluation - PT/OT evaluation - speech/swallow consultation Medication: - aspirin 81 mg daily - start statin with goal of LDL < 70 Other: - permissive hypertension - I have discussed my recommendations with the referring provider Disposition: continue admission # Logistics Attestation of consult completion: The patient is located at: [facility]. I performed this phone consultation from my offsite office Total time spent in telemedicine encounter: I spent 12 minutes in reviewing clinical data and/or imaging, obtaining history, communicating with the onsite care team, and in preparation of this report. # Demographics First Name: Carley Last Name: Rachael Facility: [facility] Electronically signed at 02/11/2025 23:55 ([place] Time) by Ivan Brar MD Allergies: Coded Allergies: insulin degludec (Verified Allergy, Unknown, 02/11/25) insulin glargine (Verified Allergy, Unknown, 02/11/25) oxycodone (Verified Allergy, Unknown, RASH, 02/11/25) Penicillins (Verified Adverse Reaction, Unknown, SWEAT./ANXIOUS, "CANNOT BREATHE", 02/11/25) Home Medications Home Medications Active Reported [place] Thyroid* (Thyroid) 15 Mg Tablet 1 Tab PO DAILY take with 30 mg Novolin 70-30 100 Unit/Ml 10ML Vial (Insulin Human Isoph/Insulin Regular) 100 Unit/1 Ml Ml 30 Units SQ QPM Nitrostat SL* (Nitroglycerin) 0.4 Mg Tablet 1 Tab SL Q5MIN PRN Albuterol 17 Gm Aerosol 2 Puff PO Q4H PRN Montelukast Sodium 10 Mg Tablet 1 Tab PO QPM 30 Days Victoza 3-Hiro (Liraglutide) 0.6 Mg/0.1 Ml Pen.injctr 1.2 Mg SQ DAILY Clopidogrel (Clopidogrel Bisulfate) 75 Mg Tablet 1 Tab PO DAILY Marketing 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
[2025-02-12] VITALS (7 sets, daily range): BP systolic 124–155; BP diastolic 61–76; PULSE 56–68; RESP 13–17; TEMP 97.6–98.7; O2SAT 95–100
[2025-02-12] MEDS ORDERED: iohexol 350MG/ML 100ml bottle IV ONE (00:45)
--- NOTE | 2025-02-12 01:53 | RADIOLOGY REPORT ---
INDICATION: numbness of right upper extremity COMPARISON: None TECHNIQUE: CTA head without and with intravenous contrast. CTA neck with intravenous contrast. 3D image postprocessing was performed on a dedicated workstation and images were used for interpretation and reporting. Radiation Dose Information: CT Dose: CTDI volume is 20.4 mGy. Dose-length product is 528.47 mGy*cm FINDINGS: CT head: There is no evidence of acute intracranial hemorrhage, extra-axial collection, mass effect, midline s hift, herniation or hydrocephalus. The ventricles, sulci and cisterns are age appropriate. The dunbar -white differentiation is intact. The visualized paranasal sinuses and mastoid air cells are clear. The surrounding soft tissues and osseous structures are unremarkable. CTA head: There is normal enhancement of the visualized distal internal carotid, anterior and middle cerebral a rteries. Minimal atherosclerotic calcifications within the cavernous portions of the bilateral paralegal internship al carotid arteries without resultant hemodynamically significant stenosis. There is a normal anteri or communicating artery complex. There are bilateral posterior communicating arteries. The vertebra l, basilar, cerebellar and posterior cerebral arteries are within normal limits. The early parenchym al enhancement is grossly unremarkable. The visualized intracranial venous structures are grossly un remarkable. CTA neck: Retroesophageal right subclavian artery. Atherosclerotic vascular calcifications. The visualized thor acic aortic arch and proximal great vessels are otherwise unremarkable. The left common, internal and external carotid arteries are within normal limits. The right common, internal and external carotid arteries are within normal limits. Atherosclerotic vascular calcifications within the bilateral carotid bulbs without resultant hemodyn amically significant stenosis. The cervical segments of the right and left vertebral arteries are within normal limits. The limited visualized lung apices are clear. The surrounding soft tissues and osseous structures ar e otherwise unremarkable. IMPRESSION: 1. No evidence of acute intracranial hemorrhage, mass effect or hydrocephalus. 2. No evidence of hemodynamically significant intracranial stenosis, proximal occlusion or aneurysm. 3. No evidence of hemodynamically significant cervical stenosis or dissection. 4. Atherosclerotic vascular calcifications within the aortic arch, bilateral carotid bulbs and cavern ous portions of the bilateral internal carotid arteries. All CT scans at this medical facility are performed using dose modulation techniques as appropriate t o a performed exam including the following: Automated exposure control was utilized; adjustment of th e MA and/or KV according to patient size; and use of iterative reconstruction technique.
[2025-02-12] MEDS ORDERED: LOSA50TA64 PO (02:10)
[2025-02-12] MEDS ORDERED: FURO-150 PO (02:11)
[2025-02-12] MEDS ORDERED: TIRZ2.5P (02:15)
[2025-02-12 05:45] LABS: BASOPHILS % (AUTO) 0.2 % (0-1); EOSINOPHILS % (AUTO) 0.5 % (0-6); HEMATOCRIT 33.8 % (35.0-45.0); HEMOGLOBIN 11.2 g/dl (12.0-16.0); LYMPHOCYTES # (AUTO) 1.6 X10'3 (1.1-4.8); LYMPHOCYTES % (AUTO) 18.3 % (21-51); MEAN CORPUSCULAR HEMOGLOBIN 27.7 PG (27.0-31.0); MEAN CORPUSCULAR HGB CONC 33.2 g/dL (33.0-36.5); MEAN CORPUSCULAR VOLUME 83.6 FL (78-98); MEAN PLATELET VOLUME 8.5 FL (7.4-10.4); MONOCYTES # (AUTO) 0.4 X10'3 (0-0.9); MONOCYTES % (AUTO) 5.2 % (2-12); NEUTROPHILS # (AUTO) 6.4 X10'3 (1.8-7.7); NEUTROPHILS % (AUTO) 75.8 % (42-75); PLATELET COUNT 255 X10'3 (140-440); RED BLOOD COUNT 4.05 X10'6 (4.20-5.60); WHITE BLOOD COUNT 8.5 X10'3 (4.5-11.0)
[2025-02-12 06:03] LABS: ALBUMIN 2.8 G/DL (3.4-5.0); ANION GAP 12 (8-16); BLOOD UREA NITROGEN 10 MG/DL (7-18); BUN/CREATININE RATIO 12.7 (10.0-20.0); CHLORIDE 114 MMOL/L (99-107); CREATININE 0.79 MG/DL (0.40-0.90); GLUCOSE 136 MG/DL (70-104); POTASSIUM 3.6 MMOL/L (3.5-5.1); SODIUM 146 MMOL/L (135-145); TOTAL CARBON DIOXIDE 20.5 MMOL/L (24-32); eCRCL 61 ML/MIN; eGFR 73 ML/MIN
[2025-02-12] MEDS: aspirin 81mg, enteric-coated 1 TAB TABLET.DR PO SCH (08:24)
[2025-02-12] MEDS: atorvastatin 20mg tablet PO SCH (08:24)
--- NOTE | 2025-02-12 09:30 | VASCULAR REPORT ---
Carotid Duplex Date: 02/12/2025 07:26 AM Clinical History: right weakness Comparison: None Technique: Duplex Doppler evaluation of the extracranial carotid and vertebral arteries including col or Doppler and spectral/pulsed waveform analysis was performed. Findings: RIGHT SIDE: The peak systolic velocities are 76 cm/s in the distal CCA and 104 cm/s in the proximal ICA.The ICA/C CA ratio is 1.5. The external carotid artery is patent with peak systolic velocity of 71 cm/s proximally. The subclavian artery is patent with peak systolic velocity of 129 cm/s proximally. There is appropriate antegrade flow in the right vertebral artery. LEFT SIDE: The peak systolic velocities are 134 cm/s in the distal CCA and 84cm/s in the proximal ICA. The ICA /CCA ratio is 1.3. The subclavian artery is patent with peak systolic velocity of 152 cm/s proximally. There is appropriate antegrade flow in the left vertebral artery. IMPRESSION: No hemodynamically significant stenosis noted in the right carotid system. No hemodynamically significant stenosis noted in the left carotid system. Reference: Radiology 2003; 229:[id number]
[2025-02-12 09:34] LABS: HEMOGLOBIN A1C 7.8 % (4.5-6.2)
[2025-02-12] MEDS: INSULIN LISPRO 100 UNIT/ML INSULN.PEN MULTI-DOSE SQ SCH (09:45)
--- NOTE | 2025-02-12 11:29 | RADIOLOGY REPORT ---
PROCEDURE: MR MRI HEAD INDICATION: Stroke-like symptoms EXAM DATE: 02/12/2025 10:49 AM COMPARISON: CT CT HEAD on DOS: 02/11/25, CT HEAD on DOS: 08/19/21 TECHNIQUE: MRI of the brain without intravenous contrast. FINDINGS: Diffusion weighted images of the brain demonstrate no evidence of acute infarction. There is no evidence of acute intracranial hemorrhage, extra-axial collection, mass effect, midline s hift, herniation or hydrocephalus. The ventricles, sulci and cisterns appear age appropriate. Mild changes of chronic microvascular ischemic disease. The major vascular flow voids are present. The visualized paranasal sinuses and mastoid air cells are clear. The surrounding soft tissues and o sseous structures are unremarkable. IMPRESSION: 1. No evidence of acute infarction, intracranial hemorrhage, mass effect or hydrocephalus. Mild dalton es of chronic microvascular ischemic disease. HS:Y
--- NOTE | 2025-02-12 13:29 | RADIOLOGY REPORT ---
PROCEDURE: MR MRA HEAD INDICATION: Stroke-like symptoms 02/12/2025 10:49 AM COMPARISON: None TECHNIQUE: MRA brain done without contrast FINDINGS: Normal flow seen through the distal left internal carotid artery and its anterior and middle cerebral artery branches. Normal flow seen through the distal right internal carotid artery and right middle cerebral artery. T he A1 segment of the right anterior cerebral artery is not seen. There is flow seen in the A2 segment of the right anterior cerebral artery. There is flow seen through the basilar artery and all portions of the right posterior cerebral artery . The P1 segment of the right posterior cerebral artery is not seen. There is flow through the remai bhavik portions of right posterior cerebral artery, fed by the right posterior communicating artery. No aneurysms or vascular malformations. No signs of vasculitis.. IMPRESSION: 1. 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 Filling of distal segments via crossover flow 2. No hemodynamically significant stenosis. No aneurysm, vascular malformation, or signs of vasculiti s.
[2025-02-12 16:07] LABS: C DIFF ANTIGEN NEGATIVE (NEGATIVE); C DIFF SPECIMEN=DIARRHEA? ACCEPTABLE; C DIFFICILE TOXINS A&B NEGATIVE (Neg)
--- NOTE | 2025-02-12 17:36 | CARDIOLOGY REPORT ---
APPROVED REPORT EXAM: Comprehensive 2D, Doppler, and color-flow Echocardiogram. Patient Location: 4[address] Heart Rate: 59 bpm Rhythm: SINUS Indications CEREBRAL VASCULAR ACCIDENT NO CONTRAST ORDERED DIABETES MELLITUS CORONARY ARTERY DISEASE HYPERTENSION Magnetic Resonance Imaging Director: NONE Previous echo: [facility] 04-28-22 [facility] EF 70%, RVSP 35, RVE, mMR, mTR 2D Dimensions IVSd 1.0 (0.7-1.1cm) LVDd 3.8 cm PWd 1.1 (0.7-1.1cm) IVSs 1.3 (0.8-1.2cm) LVDs 2.4 (2.5-4.0cm) PWs 1.3 (0.8-1.2cm) LVOT Diameter 1.99 (1.8-2.4cm) LVEF(%) 66.2 (>50%) IVC 19.06 mm M-Mode Dimensions RVDd 3.40 (2.1-3.2cm) Left Atrium(MM) 4.63 (2.5-4.0cm) Aortic Root 3.40 (2.2-3.7cm) MV EPSS 0.7 (<0.5cm) Aortic Valve AoV Peak [place]. 158.6 cm/s AoV VTI 36.5 cm AO Peak GR. 10.1 mmHg AO Mean GR. 6 mmHg LVOT VTI 27.21 cm LVOT Peak [place]. 103.1 cm/s JOHANNA(VTI)/BSA 2.32 cm2/m2 JOHANNA (VTI) 2.32 cm2 Mitral Valve MV E Velocity 78.3 cm/s MV Peak Gr. 4 mmHg MV DECEL TIME 212 ms MV A Velocity 100.4 cm/s MV PHT 64 ms E/A Ratio 0.8 MVA (PHT) 3.44 cm2 MV PRqm119.5 cm/s Tricuspid Valve TR P. Velocity 248 cm/s RAP ESTIMATE 10 mmHg TR Peak Gr. 25 mmHg RVSP 35 mmHg LEFT VENTRICLE Normal LV size and wall thickness. Overall systolic function is normal. LVEF is 60-65%. RIGHT VENTRICLE RV is mildly dilated in size with normal function. RVSP is estimated at 35 mmHg. ATRIA Left atrium is mildly dilated. AORTIC VALVE Trileaflet AV appears mildly sclerotic without stenosis. No insufficiency. MITRAL VALVE Mild MV annular calcification without stenosis. Trace regurgitation. TRICUSPID VALVE TV appears structurally normal with trace regurgitation. PULMONIC VALVE Normal PV without stenosis, physiologic insufficiency. GREAT VESSELS The aortic root is normal in size. IVC is normal in size and collapses less than 50% with inspiration . PERICARDIUM Normal pericardium. No effusion. Conclusion Normal LV size and wall thickness. Overall systolic function is normal. LVEF is 60-65%. RV is mildly dilated in size with normal function. RVSP is estimated at 35 mmHg. Left atrium is mildly dilated. Trileaflet AV appears mildly sclerotic without stenosis. No insufficiency. Mild MV annular calcification without stenosis. Trace regurgitation. TV appears structurally normal with trace regurgitation. Normal pericardium. No effusion.
[2025-02-12] MEDS: lactobacillus rhamnosus 10,000 MMU CELLS/CAPSULE PO SCH (19:36)
--- NOTE | 2025-02-12 20:35 | PROGRESS NOTE ---
Daily Progress Note Providers to CC ~ Antibiotic Timeout Antibiotic Ordered?: No Subjective Patient was seen in presence of her daughter today. Stroke workup unremarkable patient's current labs all diagnostic workup results discussed with daughter in detail. Patient does not need Mounjaro after hospital discharge please discontinue in also write for primary care physician in discharge instructions. This is requested by her daughter. Objective Vital Signs Date Time Temp Pulse Resp B/P (MAP) Pulse Ox O2 Delivery O2 Flow Rate FiO2 02/12/25 18:30 65 02/12/25 18:00 97.7 15 124/61 (82) 98 Room Air 02/12/25 08:00 0.0 Result Diagram: 02/12/258 02/12/25 0448 GENERAL: The patient appears not in any acute distress. VITAL SIGNS: Stable. HEENT: Atraumatic, normocephalic. NECK: No elevated JVD, no enlarged lymph node, no carotid bruit, no elevated JVD. EYES: No icterus or pallor present in eyes. Pupils reactive to light bilaterally, normal in size. LUNGS: Clear lung sounds to auscultation. No signs of any crackles or wheezing noticed. CARDIOVASCULAR: S1, S2 normal. No murmur. ABDOMEN: Soft, obese, signs of mild discomfort present on palpation over right side of the abdomen. No guarding or rigidity. Bowel sounds present. EXTREMITIES: No pedal edema noticed bilaterally. Able to move all 4 extremities. NEUROLOGIC: Alert, awake, oriented, cooperated during physical examination. No focal neurological deficit no drooping of angle of mouth no arm drift no weakness over the extremities no speech abnormality Problem\Assessment\Plan 1. Stroke-like symptoms- acute stroke ruled out 2. Type 2 diabetes, uncontrolled. 3. Hypertension. 4. Hyperlipidemia. 5. History of cerebrovascular accident with right-sided deficits. 6. Hypothyroidism. 7. Right lower abdominal pain, nausea vomiting 8 history of recent UTI 9. Deep venous thrombosis, prophylaxis ordered. 10 code status discussed with the patient patient wishes to stay full code daughter present at bedside The patient will be admitted to PCU for above-mentioned admitting diagnoses. We will do home medication reconciliation once updated in electronic record system. The patient's current condition is guarded. Further workup ordered for stroke-like symptoms which include MRI MRA carotid Doppler studies we will continue to monitor neuro checks. Stroke workup unremarkable patient's current labs all diagnostic workup results discussed with daughter in detail. Patient does not need Mounjaro after hospital discharge please discontinue in also write for primary care physician in discharge instructions. This is requested by her daughter. The patient's current condition is guarded. Further management depending on response to treatment and outcome of the test results. I will continue to follow up the patient in the a.m. Date of Service: Feb 12, 2025 Billing Provider: CARYL VAUGHN MD Common Visit Codes: 52275-ETHFCITADG INP/OBS CARE(HIGH) CAYRL VAUGHN MD Feb 12, 2025 20:35
[2025-02-13 02:00] VITALS: BP 127/67; PULSE 61; RESP 16; TEMP 97.9; O2SAT 99
[2025-02-13 06:00] VITALS: BP 138/79; PULSE 58; RESP 14; TEMP 97.8; O2SAT 100
[2025-02-13 07:34] LABS: BASOPHILS % (AUTO) 0 % (0-1); EOSINOPHILS % (AUTO) 0.6 % (0-6); HEMOGLOBIN 11.3 g/dl (12.0-16.0); LYMPHOCYTES # (AUTO) 1.3 X10'3 (1.1-4.8); LYMPHOCYTES % (AUTO) 15.8 % (21-51); MEAN CORPUSCULAR HEMOGLOBIN 27.3 PG (27.0-31.0); MEAN CORPUSCULAR HGB CONC 32.5 g/dL (33.0-36.5); MEAN CORPUSCULAR VOLUME 84.1 FL (78-98); MEAN PLATELET VOLUME 8.3 FL (7.4-10.4); MONOCYTES # (AUTO) 0.5 X10'3 (0-0.9); MONOCYTES % (AUTO) 6.8 % (2-12); NEUTROPHILS # (AUTO) 6.2 X10'3 (1.8-7.7); NEUTROPHILS % (AUTO) 76.8 % (42-75); PLATELET COUNT 252 X10'3 (140-440); RED BLOOD COUNT 4.16 X10'6 (4.20-5.60); RED CELL DISTRIBUTION WIDTH 18.3 % (11.5-14.5)
[2025-02-13 07:57] LABS: ALBUMIN 2.8 G/DL (3.4-5.0); ANION GAP 11 (8-16); BLOOD UREA NITROGEN 10 MG/DL (7-18); BUN/CREATININE RATIO 14.9 (10.0-20.0); CALCIUM 8.1 MG/DL (8.5-10.1); CHLORIDE 114 MMOL/L (99-107); CHOL/HDL RATIO 2.8 (0.00-4.99); CHOLESTEROL 104 MG/DL (0-200); CREATININE 0.67 MG/DL (0.40-0.90); GLUCOSE 110 MG/DL (70-104); HDL CHOLESTEROL 37 MG/DL (35-60); LDL CHOLESTEROL 45 MG/DL (50-100); POTASSIUM 3.7 MMOL/L (3.5-5.1); SODIUM 145 MMOL/L (135-145); TOTAL CARBON DIOXIDE 20.5 MMOL/L (24-32); TRIGLYCERIDES 85 MG/DL (20-135); eCRCL 72 ML/MIN; eGFR 88 ML/MIN
[2025-02-13 10:06] VITALS: BP 137/69; PULSE 78; RESP 18; TEMP 97.3; O2SAT 99
--- NOTE | 2025-02-13 18:55 | DISCHARGE SUMMARY ---
Discharge Summary Providers to CC ~ Discharge Summary Admission Diagnosis: STROKE-LIKE SYMPTOMS, UNCONTROLLED DM, NEGRITO Hospital Course DATE OF ADMISSION: 02/11/2025 DATE OF DISCHARGE: 02/13/2025 Discharge Diagnosis\\Comment: Look like symptoms/stroke mimic, type 2 diabetes mellitus, hypertension, hyperlipidemia, history of cerebrovascular accident with right-sided deficits, hypothyroidism, right lower quadrant abdominal discomfort Operations\\Procedures: None Consultants: Dr. Ivan Brar Telemedicine neurology Complications: None Condition on DC: Stable Continued Medications: Albuterol (Albuterol) 17 Gm Aerosol 2 PUFF PO Q4H PRN for SOB or wheezing Atorvastatin Calcium (Atorvastatin Calcium) 40 Mg Tablet MG PO DAILY Clopidogrel Bisulfate (Clopidogrel) 75 Mg Tablet 1 TAB PO DAILY Furosemide* (Lasix*) 20 Mg Tablet 1 TAB PO DAILY for 30 Days, #30 TAB Losartan Potassium (Losartan Potassium) 50 Mg Tablet 1 TAB PO DAILY for 30 Days, #30 TAB 0 Refills Montelukast Sodium (Montelukast Sodium) 10 Mg Tablet 1 TAB PO QPM for 30 Days, #30 TAB Nitroglycerin SL* (Nitrostat SL*) 0.4 Mg Tablet 1 TAB SL Q5MIN PRN for Chest pain Q5min PRNx3-call MD, #25 TAB Thyroid,Pork ([facility] Thyroid) 30 Mg Tablet 1 TAB PO DAILY for 30 Days, #30 TAB 0 Refills take with 15 mg Discontinued Medications: Tirzepatide (Mounjaro) 2.5 Mg/0.5 Ml Pen.injctr 1.5 Discharge Summary: The patient was admitted under Dr. Kristel Paris with the followig HPI:"This is a 62-year-old female who has known history of diabetes, hypertension, hyperlipidemia, history of old CVA, right-sided deficit, hypothyroidism, chronic kidney disease. Patient currently follows in [facility] with PCP. As per daughter she is currently taking Mounjaro for diabetes control . she is not on Jardiance and she is not able to tolerate insulin Lantus and feels that she is out of breath after taking Lantus insulin. Daughter mentioned that she is able to tolerate Levemir insulin better than Lantus insulin. Main reason for patient's visit today was numbness which she noticed around the mouth and over the both hand and feet after eating pork in the morning. Patient is able to ambulate as per daughter. She also gets off and on right abdominal pain which radiates towards her right flank. Urine testing was done which was negative for any UTI. Patient also had four episodes of diarrhea and it is like watery stools, one episode of vomiting. She took antibiotics for UTI two weeks back Patient's daughter feels that her hemoglobin A1c was around 7 with PCP even though in ER her blood sugars are in 300s. Patient also has issues with the constipation she had blood in stools for which colonoscopy was done and they found one polyp and rest of the study was unremarkable. Further workup done in ER hospitalist services contacted for admission for stroke-like symptoms, worsening of her renal function and other multiple issues mentioned above." The patient's abdominal discomfort resolved with holding Mounjaro. Dr. Ivan Brar tele neurologist recommended a stroke workup The patient has stroke workup was completely unremarkable including a negative MRI of the head, in the MRA of the head demonstrated congenital absent a one segment of the right cerebral artery P1 segment of the right posterior cerebral artery there were no stenosis or aneurysms per appreciated. The CTA of the head was unremarkable The echocardiogram also was unremarkable with a LVEF of 60-65%. The patient was treated with the hyper and hypoglycemic protocol for the p fawn's diabetes blood sugars were controlled during hospitalization accept four on presentation to the ED with a blood sugars were 316 upon blood sugars two all of the remaining blood glucose readings were anywhere from 94- 120s The patient's blood pressure was controlled during hospitalization as well The patient did well with physical therapy and was cleared to be discharged Gen. No acute distress alert and oriented 4 Lungs clear to ascultation bilaterally, no wheezes rales or rhonchi appreciated Heart normal sinus rhythm no murmurs rubs or clicks noted Abdomen soft nontender bowel sounds are normoactive Lower extremities no clubbing cyanosis, nor edema appreciated bilaterally The patient felt ready to be discharged and was medically cleared to be d ischarged on 02/13/2025 The patient was seen and evaluated on day of discharge. Time spent on discharge 35 minutes *Problems/Diagnosis: (1) HTN (hypertension) Status: Acute Total Time Spent on D/C: > 30 Minutes Date of Service: Feb 13, 2025 Billing Provider: ERIC YAN DO Common Visit Codes: 02546-WST/OBS DISCH DAY >30min ERIC YAN DO Feb 13, 2025 18:55
== END 2025-02-13 13:05 | disposition home or self-care (01) | DRG 469 ==
LOC: ER 14:46 → ED HOLD 17:22 → ORTHO 4S 21:40
PROVIDERS: ADMIT Internal Medicine; ATTEND Internal Medicine
PROC: B3251ZZ Computerized Tomography (CT Scan) of Bilateral Common Carotid Arteries using Low Osmolar Contrast (ICD-10-PCS; principal; 2025-02-12)
PROC: B32G1ZZ Computerized Tomography (CT Scan) of Bilateral Vertebral Arteries using Low Osmolar Contrast (ICD-10-PCS; 2025-02-12)
PROC: B32R1ZZ Computerized Tomography (CT Scan) of Intracranial Arteries using Low Osmolar Contrast (ICD-10-PCS; 2025-02-12)
PROC: B3281ZZ Computerized Tomography (CT Scan) of Bilateral Internal Carotid Arteries using Low Osmolar Contrast (ICD-10-PCS; 2025-02-12)
DX: N17.9 Acute kidney failure, unspecified (principal); E11.22 Type 2 diabetes mellitus with diabetic chronic kidney disease; E03.9 Hypothyroidism, unspecified; R10.31 Right lower quadrant pain; I12.9 Hypertensive chronic kidney disease with stage 1 through stage 4 chronic kidney disease, or unspecified chronic kidney disease; I25.10 Atherosclerotic heart disease of native coronary artery without angina pectoris; E78.5 Hyperlipidemia, unspecified; N18.9 Chronic kidney disease, unspecified; Z88.5 Allergy status to narcotic agent; Z90.710 Acquired absence of both cervix and uterus; I69.398 Other sequelae of cerebral infarction; Z88.0 Allergy status to penicillin; Z79.01 Long term (current) use of anticoagulants; Z79.899 Other long term (current) drug therapy
CPT/HCPCS: 36415; 70450; 70496; 70498; 70544; 70551; 71045; 80048; 80053; 80061; 81001; 81025; 82948; 83036; 83690; 83880; 84145; 84484; 85025; 85651; 87045; 87046; 87081; 87088; 87324; 87449; 89055; 92508; 92616; 93005; 93306; 93880; 97110; 97116; 97162; A4615; A6258; G0378; J1644; J1815; J7030; Q9967